=== PATIENT | male | born 1955 | race Caucasian/White ===

== ENCOUNTER 2019-03-27 17:15 | Inpatient (IN) | payer MEDICARE, SELFPAY ==
--- NOTE | 2019-03-27 17:31 | ED_ITS ---
Entered by Emily Dias, acting as scribe for HPI - Neuro Symptoms/Deficit General: Chief Complaint: Neuro Symptoms/Deficit Stated Complaint: stroke like symptoms Time Seen by Provider: 03/27/19 17:44 Source: family Limitations: altered mental status History of Present Illness: HPI Narrative: 64 male presents with stroke like symptoms started at 1530. pt has weakness on R face and R arm. pt's spouse stated he was in the barn and when he came back he had weakness to his face and could not talk like normal. spouse denies any other symptoms. Time: 15:30 Last Observed Normal: 15:30 Timing confirmed by: spouse Location: right face and right arm Severity: moderate Quality: weak (face) Relieving factors: none Exacerbating factors: none Context: sudden onset (1530) On Anticoagulants: No Associated symptoms: Reports weakness (face and R arm); Deny chest pain, headache(s) or vomiting Treatments Prior to Arrival: none Review of Systems Const: Denies: fever or chills Eyes: Denies: change in vision ENMT: Denies: throat pain or mouth pain Card: Denies: chest pain Resp: Denies: shortness of breath GI: Denies: abdominal pain, vomiting or diarrhea Musc: Denies: back pain or joint pain Skin/Breast: Denies: rash Neuro: Reports: confusion, slurred speech and difficulty communicating thoughts; Denies: headache Psych: Denies: depression Endo: Denies: excessive urination Gerardo/Lymph: Denies: easy bruising All/Imm: Denies: hives PFSH ED PFSH: Statuses (acute, chronic, etc) shown below reflect problem list status as previously entered and may not be historically accurate Medical History (Updated 03/27/19 @ 22:54 by Praveen Trimble MD) CHB (complete heart block) (Acute) HTN (hypertension) (Acute) T2DM (type 2 diabetes mellitus) (Acute) Surgical History (Updated 03/27/19 @ 22:54 by Praveen Trimble MD) Aortic valve replaced (Acute) S/P cardiac pacemaker procedure (Acute) Family History (Updated 03/27/19 @ 22:55 by Praveen Trimble MD) Other CAD (coronary artery disease) Family history of premature coronary artery disease Hypertension Stroke Social History (Updated 03/27/19 @ 22:56 by Praveen Trimble MD) Smoking and tobacco status: current every day smoker cigarettes Packs smoked per day: 0.5 Alcohol intake: former Household members: spouse Housing: House Marital status: Physical Exam Const: COMMON NORMALS: healthy appearing EXAM LIMITATIONS: altered mental status HENMT: COMMON NORMALS: normocephalic and external nose normal HEAD & SCALP: normocephalic NOSE: external nose normal and no nasal discharge (nasal dischage) OTHER: right sided facial droop Eye: COMMON NORMALS: PERRL PUPIL: Yes PERRL Neck/C-Spine: COMMON NORMALS: full ROM and no lymphadenopathy Chest: COMMONS NORMALS: inspection of chest normal Resp: COMMON NORMALS: normal respiratory effort and clear to auscultation bilaterally AUSCULTATION: clear to auscultation bilaterally Cardio: COMMON NORMALS: regular rate and regular rhythm RATE: regular rate RHYTHM: regular rhythm GI: COMMON NORMALS: soft to palpation PALPATION: Yes soft Extremity: COMMON NORMALS: normal to inspection, full ROM and normal capillary refill Neuro: OTHER: severe aphasia Psych: COMMON NORMALS: mental status grossly normal and cooperative Skin: COMMON NORMALS: no rashes or lesions noted GENERAL SKIN EXAM: no rashes or lesions noted Course Vital Signs: Vital signs: Vital Signs Temperature 97.7 F 03/28/19 14:51 Pulse Rate 63 03/28/19 14:51 Respiratory Rate 20 H 03/28/19 14:51 Blood Pressure 133/80 03/28/19 14:51 Pulse Oximetry 96 03/28/19 14:51 MDM - Neuro Symptoms/Deficit MDM Narrative: Medical decision making narrative: Patient presents here with a likely stroke. Patient was seen down the ER by Dr. Patton and patient is not a TPA candidate as CT shows findings of stroke already. Patient is not a retrieval candidate either. Will admit patient to CSU here. Lab Data: Labs: Lab Results 03/27/19 03/27/19 03/27/19 Range/Units 17:50 17:50 17:50 WBC 12.1 H (4.0-10.0) 10^3/ uL RBC 5.04 (4.1-5.3) 10^6/u L Hgb 15.5 (11.7-16.6) g/dL Hct 47.6 (42.0-52.0) % MCV 94.4 H (80-94) fL MCH 30.8 (28.0-34.0) pg MCHC 32.6 (30.0-36.0) g/dL RDW 14.0 (12.1-15.1) % Plt Count 189 (130-400) 10^3/c mm MPV 9.5 (7.4-10.4) fL Neut % (Auto) 68.6 % Lymph % (Auto) 21.0 % Sumner % (Auto) 6.6 % Eos % (Auto) 2.6 % Baso % (Auto) 0.7 % Neut # (Auto) 8.3 H (1.8-7.7) 10^3/u L Lymph # (Auto) 2.5 (0.8-4.8) 10^3/u L Sumner # (Auto) 0.8 (0.2-0.9) 10^3/u L Eos # (Auto) 0.3 (0.0-0.8) 10^3/u L Baso # (Auto) 0.1 (0.0-0.1) 10^3/u L Nucleated RBC % (a uto) 0 % Nucleated RBCs # 0.0 /100WBC PT 14.10 H (10.5-13.3) SECO NDS INR 1.06 (0.8-1.2) APTT 31.8 (23.9-36.7) SECO NDS Sodium 133 L (136-145) mmol/L Potassium 4.0 (3.5-5.1) mmol/L Chloride 100 (98-107) mmol/L Carbon Dioxide 21 L (22-29) mmol/L Anion Gap 16.0 (5-19) BUN 18 (8-23) mg/dL Creatinine 0.8 (0.7-1.2) mg/dL GFR Calculation 96.7 (90-130) mL/min Glucose 95 (74-106) mg/dL Calcium 9.7 (8.8-10.2) mg/Dl Total Bilirubin 0.5 (0.15-1.2) mg/dL AST 23 (0-40) U/L ALT 15 (0-41) U/L Alkaline Phosphata se 46 (40-130) IU/L Total Protein 7.0 (6.6-8.7) g/dL Albumin 4.1 (3.5-5.2) g/dL Globulin 2.9 (1.3-4.6) g/dL EKG Data^: EKG 1: Attestation: I personally reviewed and interpreted this EKG as follows: EKG interpretation date: 03/27/19 EKG interpretation time: 18:30 Interpretation: paced rhythm hr [address] or t wave abnormalities Discharge Plan Discharge Patient Disposition: Admitted As Inpatient Admit Provider: Praveen Trimble Clinical Impression: Cerebrovascular accident Condition: Stable Discharge Orders: Discharge Order (Routine); Ordered 03/28/19 Ordered By: Praveen Trimble Referrals: Alice Patton MD [Physician] - (You have an follow-up appoinment with Dr. Patton on June 03 at 11:30a.m. If, you have questions or need to reschedule. Please call: ) Frankie Schafer MD [Physician] - (You have an follow-up appointment with Sydnie Kang at [facility] on Tuesday at 9:15a.m. To discuss a Alex as an Outpatient . If, you any questions or need to reschedule. Please, [phone] ) Mahamed Nazario MD [Primary Care Provider] - (You have an follow-up appointment with on Tuesday at 11a.m. If, you have any questions or need to reschedule. Please call: . Speech tharpy at the [facility] will be contacting to schedule outpatinet speech tharpy in 2 weeks. If, you haven't heard from them by Tuesday. Please call: ) Patient Instructions: Aspirin/Codeine (By mouth), Amlodipine (By mouth), Atorvastatin (By mouth), Carvedilol (By mouth), Clopidogrel (By mouth), Varenicline (By mouth), Hypertension, Pacemaker (DC), Diabetes Mellitus Type 2 in Adults (DC), Self Care Measures After a Stroke (DC), Bradycardia (DC) Additional Instructions: Antihypertensives modified Coreg dose changed. Check BP daily as directed and educated. If BP over 150mmhg take amlo 5mg once a day as needed ALEX in 2 weeks Discharge Date/Time: 03/27/19 20:52 Coding Level of Care Code ED Supplier Diversity Director for [facility] The documentation recorded by the Arun gabriel Bridget Annette, accurately reflects the service I personally performed and the decisions made by me, Shaniqua Faye MD Mar 27, 2019 17:15
--- NOTE | 2019-03-27 17:35 | CTR_ITS ---
PROCEDURE INFORMATION: Exam: CT Head Without Contrast Exam date and time: 03/27/2019 5:43 PM Age: 64 years old Clinical indication: Speech disturbance; Additional info: Symptoms of acute stroke. Scanned twice due to patient motion TECHNIQUE: Imaging protocol: Computed tomography of the head without contrast. Total DLP: 1568.17 mGy-cm Radiation optimization: All CT scans at this facility use at least one of these dose optimization techniques: automated exposure control; mA and/or kV adjustment per patient size (includes targeted exams where dose is matched to clinical indication); or iterative reconstruction. Other technique: STROKE PROTOCOL was implemented. COMPARISON: CTA Head/Neck [id number] 03/13/2019 1:08 PM FINDINGS: Brain: Stable one or more chronic left lacunar basal ganglia infarcts. Interval appearance of 3.0 by 2.2 x 2.7 cm low-density nonhemorrhagic infarct in the left frontal lobe, just superior to the left sylvian fissure. Possible late subacute infarct/early chronic infarct. New since 03/13/2019. Ventricles: Normal. No ventriculomegaly. Bones/joints: Unremarkable. No acute fracture. Sinuses: Visualized sinuses are unremarkable. No fluid levels. Mastoid air cells: Visualized mastoid air cells are well aerated. Soft tissues: Unremarkable. Vasculature: Severe calcified intracranial atherosclerotic vessel disease. CT/CT head wo con* [id number] IMPRESSION: 1. Stable one or more chronic left lacunar basal ganglia infarcts. 2. Interval appearance of 3.0 by 2.2 x 2.7 cm low-density nonhemorrhagic infarct in the left frontal lobe, just superior to the left sylvian fissure. Possible late subacute infarct/early chronic infarct. New since 03/13/2019. ASSESSMENT: ASPECTS (Yvonne Stroke Program Early CT Score) is 9. Radiation Dose CTDIVOL = (mGy): DLP = 1568.17 (mGy-cm)
--- NOTE | 2019-03-27 17:35 | ECG_ITS ---
Measurements Intervals [place] Rate: 61 P: 62 PA: 177 QRS: -85 QRSD: 234 T: 95 QT: 553 QTc: 558 ELECTRONIC ATRIAL PACEMAKER ELECTRONIC VENTRICULAR PACEMAKER PROLONGED QT INTERVAL CRITICAL TEST RESULT Compared to ECG 02/24/2019 08:53:33 Prolonged QT interval now present Electronically Signed On 03-27-2019 19:22:29 TRIM CARPENTER by Frankie Schafer M.D. [id number]
[2019-03-27 18:02] LABS: Basophils # 0.1 10^3/uL (0.0-0.1); Basophils % 0.7 %; Eosinophils # 0.3 10^3/uL (0.0-0.8); Eosinophils % 2.6 %; Hematocrit 47.6 % (42.0-52.0); Hemoglobin 15.5 g/dL (11.7-16.6); Lymphocytes # 2.5 10^3/uL (0.8-4.8); Mean Corpuscular HGB Conc 32.6 g/dL (30.0-36.0); Mean Corpuscular Hemoglobin 30.8 pg (28.0-34.0); Mean Corpuscular Volume 94.4 fL (80-94); Mean Platelet Volume 9.5 fL (7.4-10.4); Monocytes # 0.8 10^3/uL (0.2-0.9); Monocytes % 6.6 %; Neutrophils # 8.3 10^3/uL (1.8-7.7); Neutrophils % 68.6 %; Nucleated Red Blood Cells % 0 %; Platelet Count 189 10^3/cmm (130-400); Red Blood Count 5.04 10^6/uL (4.1-5.3); White Blood Count 12.1 10^3/uL (4.0-10.0)
--- NOTE | 2019-03-27 18:02 | CTR_ITS ---
PROCEDURE INFORMATION: Exam: CT Angiography Head With Contrast Exam date and time: 03/27/2019 6:06 PM Age: 64 years old Clinical indication: Speech disturbance; Prior surgery; Surgery type: Pacemaker; Additional info: Stroke TECHNIQUE: Imaging protocol: Computed tomography angiography of the head with intravenous contrast. 3D rendering: MIP and/or 3D reconstructed images were created by the technologist. Total DLP: 3015.87 mGy-cm Radiation optimization: All CT scans at this facility use at least one of these dose optimization techniques: automated exposure control; mA and/or kV adjustment per patient size (includes targeted exams where dose is matched to clinical indication); or iterative reconstruction. Contrast material: VISI 320; Contrast volume: 95 ml; Contrast route: IV; COMPARISON: CTA Head/Neck [id number] 03/13/2019 1:08 PM FINDINGS: Right internal carotid artery: Calcified plaque in the right cavernous ICA without significant stenosis. Right anterior cerebral artery: Unremarkable. No occlusion or significant stenosis. No aneurysm. Right middle cerebral artery: Unremarkable. No occlusion or significant stenosis. No aneurysm. Right posterior cerebral artery: Unremarkable. No occlusion or significant stenosis. No aneurysm. Right vertebral artery: Dominant left vertebral artery with patent right vertebral artery. Left internal carotid artery: Calcified plaque in the left cavernous ICA without significant stenosis. Left anterior cerebral artery: Unremarkable. No occlusion or significant stenosis. No aneurysm. Left middle cerebral artery: Unremarkable. No occlusion or significant stenosis. No aneurysm. Left posterior cerebral artery: Direct origin of the left posterior cerebral artery from the anterior circulation. Left vertebral artery: Unremarkable. No occlusion or significant stenosis. No aneurysm. Basilar artery: Unremarkable. No occlusion or significant stenosis. No aneurysm. Other vasculature: Small patent anterior communicating artery. No large vessel occlusion. IMPRESSION: No large vessel occlusion. PROCEDURE INFORMATION: Exam: CT Angiography Neck With Contrast Exam date and time: 03/27/2019 6:06 PM Age: 64 years old Clinical indication: Speech disturbance; Prior surgery; Surgery type: Pacemaker; Additional info: Stroke TECHNIQUE: Imaging protocol: Computed tomography angiography of the neck with intravenous contrast. 3D rendering: MIP and/or 3D reconstructed images were created by the technologist. Total DLP: 3015.87 mGy-cm Radiation optimization: All CT scans at this facility use at least one of these dose optimization techniques: automated exposure control; mA and/or kV adjustment per patient size (includes targeted exams where dose is matched to clinical indication); or iterative reconstruction. Contrast material: VISI 320; Contrast volume: 95 ml; Contrast route: IV; COMPARISON: CTA Head/Neck [id number] 03/13/2019 1:08 PM FINDINGS: VASCULATURE: Right common carotid artery: Unremarkable. No stenosis. No dissection or occlusion. Right internal carotid artery: Right carotid bifurcation calcified plaque. No ICA stenosis by NASCET/SRU criteria. Right external carotid artery: Unremarkable. No occlusion or stenosis of the origin. Right vertebral artery: Dominant left vertebral artery with patent right vertebral artery. Left common carotid artery: Unremarkable. No stenosis. No dissection or occlusion. Left internal carotid artery: Left carotid bifurcation calcified plaque. Left external carotid artery: Unremarkable. No occlusion or stenosis of the origin. Left vertebral artery: Unremarkable. No stenosis. No dissection or occlusion. Other vasculature: Sternotomy wires and mediastinal clips consistent with previous CABG procedure. S-shaped tortuosity of bilateral cervical ICAs. NECK: Dental: Examination is limited secondary to metallic artifact from dental fillings and/or dental hardware. Poor dentition with one or more areas of cavities of the enamel portion of the tooth and/or periapical lucencies/tooth abscesses. Bones/joints: Ligamentum nuchae ossification/calcification. Moderate to severe multilevel spine degenerative changes including degenerative disc disease, spondylosis and facet degenerative changes. Soft tissues: Normal. No significant soft tissue swelling. Lungs: Mild centrilobular emphysema. Other findings: Levoscoliosis. CT/CT angio headneck* [id number] IMPRESSION: 1. Mild centrilobular emphysema. 2. Dominant left vertebral artery with patent right vertebral artery. 3. Poor dentition with one or more areas of cavities of the enamel portion of the tooth and/or periapical lucencies/tooth abscesses. 4. No ICA stenosis by NASCET/SRU criteria. COMMENT: Reference per NASCET criteria for degree of stenosis: Mild: less than 50% stenosis. Moderate: 50-69% stenosis. Severe: 70-94% stenosis. Near occlusion: 95-99% stenosis. Radiation Dose CTDIVOL = (mGy): DLP = 3015.87~3015.87 (mGy-cm)
--- NOTE | 2019-03-27 18:07 | PC.NURSE ---
See paper stroke packet for additional information. Patient back to CT for CTA at this time.
[2019-03-27 18:13] LABS: INR 1.06 (0.8-1.2)
[2019-03-27 18:14] LABS: Partial Thromboplastin Time 31.8 SECONDS (23.9-36.7)
[2019-03-27 18:19] LABS: Alanine Aminotransferase 15 U/L (0-41); Albumin Level 4.1 g/dL (3.5-5.2); Alkaline Phosphatase 46 IU/L (40-130); Blood Urea Nitrogen 18 mg/dL (8-23); Calcium 9.7 mg/Dl (8.8-10.2); Carbon Dioxide 21 mmol/L (22-29); Chloride 100 mmol/L (98-107); Globulin 2.9 g/dL (1.3-4.6); Glomerular Filtration Rate 96.7 mL/min (90-130); Glucose 95 mg/dL (74-106); Sodium 133 mmol/L (136-145); Total Bilirubin 0.5 mg/dL (0.15-1.2)
[2019-03-27] MEDS: iodixanol 320 mg/mL 100mL Btl 95 ML IV (18:20)
[2019-03-27] MEDS: sodium chloride 0.9% 1,000 ML 150 ML IV (18:24)
[2019-03-27 18:42] VITALS: BP 182/98; PULSE 62; RESP 14; TEMP 36.8; O2SAT 95; BMI 26.3
--- NOTE | 2019-03-27 18:56 | PM.SAN ---
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 The trouble some problem is that he developed acute expressive a aphasia on 28 February, 4 days after he was discharged from pacemaker placement. He was traveling with his that afternoon doing some shopping and she noticed on the way home that he would not answer her questions and was making gestures instead. Within 4 hours he was talking normally but since then, he has exhibited word searching or occasionally saying the wrong word. His energy level and wellbeing have gradually improved since pacemaker placement and although he was restricted in the use of his left arm, he was out working in the barn this afternoon. He went out at 3:00 and they had a conversation and he was doing well. He came back into the house at 4 PM and picked up his coffee cup with his right hand. He attempted to set the cup down on the counter and dropped it. At that point she discovered that he could not speak. They walked to the car and she brought him to the emergency department and stroke team was activated. I arrived as he was getting onto the CAT scan table and observed that he had difficulty bearing weight on the right leg which his said was a new problem. I helped get him onto the table and noticed that his right arm was clumsy and he had right facial weakness and expressive a aphasia but followed commands well. CT scan of the head showed what appeared to be a subacute infarct in the left frontal opercular branch of the left middle cerebral artery. CT angiogram did not show a visible clot. His CT scan of the head from 03/13/2019 (performed to evaluate him because of the episode of expressive a aphasia) did not show the infarct that is present on today's CAT scan. Because the patient's neuro deficit was moderate to severe and because of the clinical presentation with acute onset of severe symptoms at 4 PM (at worst 3 PM), I called the doctors access line and spoke with Dr. Tolentino at [facility], stroke neurology. I presented the case and he reviewed the imaging studies, which we had already pushed via [employer]. Stroke Alert Activated by: Triage Stroke Alert Activation Date: 03/27/19 Stroke MD @ Bedside Date: 03/27/19 Stroke MD @ Bedside Time: 17:30 NIH Stroke Scale Time: 17:50 NIH stroke score NIHSS: Level Of Consciousness - 1a: 0 Level Of Consciousness Questions - 1b: Both Correct Level Of Consciousness Commands - 1c: Both Correct Best Gaze - 2: Normal Visual Carrasco - 3: No Visual Loss Facial Palsy - 4: Partial Paralysis Motor Arm Right - 5: Effort Against [place] Motor Arm Left - 5: No Drift Motor Leg Right - 6: Effort Against [place] Motor Leg Left - 6: No Drift Limb Ataxia - 7: Absent Sensory - 8: Normal Best Language - 9: Severe Aphasia Dysarthia - 10: Mild/Moderate Dysarthia Extinction And Inattention - 11: 0 Score: Total Score: 9 Stroke Alert Data/Treatment Time to CT of Head: 17:45 CT Results Date: 03/27/19 CT Results Time: 17:50 CT Impression: New left frontal opercular edema consistent with subacute ischemic stroke. CT angiogram negative for thrombus. Stroke Risk Factors: smoker tPA Contraindication: tPA Contraindication: Treatment not indcated and Medical contraindication tPA Admin Prior to Arrival: No Patient & Family Educated on: Cause of Stroke, Risk Factors, Treament Plan, Prognosis and Stroke Education Booklet Standardized Stroke Orders Used: Yes Other Information: Plan transesophageal echo. I talked with Dr. Tolentino at [facility] because of the complexity of this case and he separately interviewed the patient and his and agreed that there was no role for TPA in this patient's care because of the danger of intracranial hemorrhage posed by what appears to be a subacute stroke in the left frontal opercular region despite the clinical acuity. I carefully reviewed this information multiple times with the patient's . I explained that there is no role for ICU. We will administer IV fluids. Discussed with Dr. Faye. Patient will require hospitalization to look for the cause of the stroke which I strongly suspect is cardiac in origin. I explained to the patient that he needs to stop smoking today. I would recommend that he initiate Chantix during hospitalization or immediately after discharge. Critical Care Time Critical Care Time: 30 - 74 mins Coding Level of Care Code Acute Sediment Remediation Consultant for Glenna James
[2019-03-27 19:07] LABS: Aspartate Amino Transferase 23 U/L (0-40)
[2019-03-27] MEDS: aspirin 300 mg Supp PR (20:08)
--- NOTE | 2019-03-27 20:10 | P.HP_ITS ---
Providers/Chief Complaint Primary Care Provider: Mahamed Nazario MD Chief Complaint: stroke like symptoms History of Present Illness Julius Rao is a 64 year old male with PMH of HTN, chronic smoker, AVR 6 yrs ago, recent PPI for CHB presented to ER with his with c/o expressive aphasia, right sided weakness, right sided facial droop since today evening at 4 Pm which was first noticed by his when he dropped cup and was not able to grasp it up from floor. As per his patient has had episodes of expressive aphasia atleast 4 times since PPI mostly lasting for 10-15 mins. NOne of he events today or prior were a/w N/V, dizziness, headache, seizure like activity, aura. In ER CT head and CTA was done and stroke code was called. After discussion with Dr. Patton and neurologist at [facility] it was deemed that patient is a not a good candidate for tPA and retrieval given the high risk of hemorrhage and distal occlusion. During my evaluation pwer on right side had improved and slurring of speech had improved as well along with very mild residual aphasia. Review of Systems Const: Denies: fever, chills, body aches, change in appetite, malaise, night sweats, diaphoresis, change in sleep pattern, daytime sleepiness or snoring Eyes: Denies: change in vision, blurry vision, photophobia, eye discomfort or eye discharge ENMT: Denies: throat pain, enlarged tonsils, hoarseness, mouth pain, oral sores/lesions, dry mouth, tinnitus, nasal congestion or post nasal drip Card: Denies: chest pain, palpitations, irregular heart rhythm, edema, swelling of feet/ankles, lightheadedness, syncope, pre-syncope, shortness of breath on exertion, shortness of breath when lying down, leg pain with exertion or bluish discoloration of hands/feet Resp: Denies: shortness of breath, productive cough, non-productive cough, wheezing, stridor, pain on inspiration, change in phlegm color, coughing up blood or chest congestion GI: Denies: abdominal pain, nausea, vomiting, vomiting blood, coffee grounds in vomit, difficulty swallowing, heartburn/indigestion, diarrhea, constipation, bloating, cramping, change in bowel habits, painful bowel movements, blood in stool or black tarry stool : Denies: flank pain, difficulty urinating, painful urination, urinary frequency, urinary urgency, urinary hesitancy, urinary dribbling, difficulty starting urination, change in urine stream, nighttime urination or blood in urine Musc: Denies: neck pain, back pain, extremity pain, joint pain, joint swelling, redness, joint stiffness or limited range of motion Neuro: Reports: numbness in extremities, weakness in extremities, changes in sensation, lack of coordination, difficulty walking, slurred speech and difficulty communicating thoughts; Denies: headache, frequent falls, dizziness, vertigo, confusion or seizure-like activity Psych: Denies: anxiety, depression, mood swings, panic attacks, hopelessness or irritability Endo: Denies: excessive urination, excessive thirst, tired all the time, cold intolerance, excessive sweating, flushing or heat intolerance Gerardo/Lymph: Denies: easy bruising or easy bleeding All/Imm: Denies: tongue swelling, facial swelling or acute wheezing Medications/Allergies Home Medications Medication Instructions Recorded Confirmed Last Taken Type amlodipine 10 mg PO DAILY 03/27/19 03/27/19 03/27/19 History atorvastatin 10 mg PO QPM 03/27/19 03/27/19 03/26/19 History carvedilol 12.5 mg PO BID 03/27/19 03/27/19 03/27/19 History clonidine HCl 0.1 mg PO DAILY PRN 03/27/19 03/27/19 03/27/19 History metformin 500 mg PO QPM 03/27/19 03/27/19 03/26/19 History multivitamin 1 tab PO DAILY 03/27/19 03/27/19 03/27/19 History omega 8-[id number]-vuh-fish oil [Fish Oil] 1 cap PO DAILY 03/27/19 03/27/19 03/27/19 History tamsulosin [Flomax] 0.4 mg PO BEDTIME 03/27/19 03/27/19 03/26/19 History valsartan 160 mg PO DAILY 03/27/19 03/27/19 03/27/19 History Allergies Allergy/AdvReac Type Severity Reaction Status Date / Time No Known Allergies Allergy Verified 03/27/19 18:48 PFSH Acute PFSH: Statuses (acute, chronic, etc) shown below reflect problem list status as previously entered and may not be historically accurate Medical History (Updated 03/27/19 @ 22:54 by Praveen Trimble MD) CHB (complete heart block) (Acute) HTN (hypertension) (Acute) T2DM (type 2 diabetes mellitus) (Acute) Surgical History (Updated 03/27/19 @ 22:54 by Praveen Trimble MD) Aortic valve replaced (Acute) S/P cardiac pacemaker procedure (Acute) Family History (Updated 03/27/19 @ 22:55 by Praveen Trimble MD) Other CAD (coronary artery disease) Family history of premature coronary artery disease Hypertension Stroke Social History (Updated 03/27/19 @ 22:56 by Praveen Trimble MD) Smoking and tobacco status: current every day smoker cigarettes Packs smoked per day: 0.5 Alcohol intake: former Substance/Drug Use: never Household members: spouse Housing: House Marital status: Vitals/I&O/Wt Last Vital Signs Temp 98.2 F 03/27/19 18:42 Pulse 62 03/27/19 18:42 Resp 14 03/27/19 18:42 BP 182/98 03/27/19 18:42 Pulse Ox 95 03/27/19 18:42 03/27/19 03/27/19 03/27/19 06:59 14:59 22:59 Intake Total 5.833 / 5.833 Balance 5.833 / 5.833 Weight last 48 hrs Weight 85.729 kg Physical Exam Narrative: EXAM NARRATIVE: General: No acute distress, AO x3 HEENT: PERRLA, pupils bilaterally equal and reactive Chest: Normal vesicular breath sounds, no added sounds, equal good air entry bilaterally CVS: S1-S2 regular, no murmurs, no tachycardia, no gallops, no rubs Abdomen: Soft, nontender, no organomegaly, bowel sounds present Neuro: GEORGIE COMA SCALE: document GCS findings [place] coma scale eye opening: Spontaneous Georgie coma scale verbal response: Orientated Georgie coma scale motor response: Obey commands Georgie coma scale total score: 15 COMMON NORMALS: oriented x3 MENINGEAL SIGNS: Yes no meningeal signs CRANIAL NERVES: Yes pupillary reactivity/size COORDINATION/BALANCE: finge r-to-nose test normal SPEECH: speech normal and expressive aphasia MOTOR EXAM: no pronator drift, no tremor noted and strength abnormal (right upper and lower limb 3/5) Data Imaging^: CT Head: Radiologist's impression: CT Scan Report Signed with Addenda Patient: James Rao#: [id number] : 1955cct:[id number] Age/Sex: 64 / MADM Date: 03/27/19 Loc: ER Attending Dr: Ordering Physician: Shaniqua Faye MD Date of Service: 03/27/19 Procedure(s): CT head wo con* [id number] Accession Number(s): [id number] cc: Shaniqua Faye MD~ ADDENDUM CT/CT head wo con* [id number] THIS REPORT CONTAINS FINDINGS THAT MAY BE CRITICAL TO PATIENT CARE. The findings were verbally communicated via telephone conference with Aron Dorman at 6:27 PM SURVEY TECHNICIAN on 03/27/2019. The findings were acknowledged and understood. Radiation Dose CTDIVOL = (mGy): DLP = 1568.17 (mGy-cm) Addendum Dictated By: Apollo Toney MD 03/27/19 182 Addendum Signed By: Apollo Toney MD 03/27/19 1829 PROCEDURE INFORMATION: Exam: CT Head Without Contrast Exam date and time: 03/27/2019 5:43 PM Age: 64 years old Clinical indication: Speech disturbance; Additional info: Symptoms of acute stroke. Scanned twice due to patient motion TECHNIQUE: Imaging protocol: Computed tomography of the head without contrast. Total DLP: 1568.17 mGy-cm Radiation optimization: All CT scans at this facility use at least one of these dose optimization techniques: automated exposure control; mA and/or kV adjustment per patient size (includes targeted exams where dose is matched to clinical indication); or iterative reconstruction. Other technique: STROKE PROTOCOL was implemented. COMPARISON: CTA Head/Neck [id number] 03/13/2019 1:08 PM FINDINGS: Brain: Stable one or more chronic left lacunar basal ganglia infarcts. Interval appearance of 3.0 by 2.2 x 2.7 cm low-density nonhemorrhagic infarct in the left frontal lobe, just superior to the left sylvian fissure. Possible late subacute infarct/early chronic infarct. New since 03/13/2019. Ventricles: Normal. No ventriculomegaly. Bones/joints: Unremarkable. No acute fracture. Sinuses: Visualized sinuses are unremarkable. No fluid levels. Mastoid air cells: Visualized mastoid air cells are well aerated. Soft tissues: Unremarkable. Vasculature: Severe calcified intracranial atherosclerotic vessel disease. CT/CT head wo con* [id number] IMPRESSION: 1. Stable one or more chronic left lacunar basal ganglia infarcts. 2. Interval appearance of 3.0 by 2.2 x 2.7 cm low-density nonhemorrhagic infarct in the left frontal lobe, just superior to the left sylvian fissure. Possible late subacute infarct/early chronic infarct. New since 03/13/2019. ASSESSMENT: ASPECTS ([place] Stroke Program Early CT Score) is 9. Radiation Dose CTDIVOL = (mGy): DLP = 1568.17 (mGy-cm) Other CT: Radiologist's impression: [place] [address] CT Scan Report Signed Patient: Jmaes Rao#: [id number] : 1955cct:[id number] Age/Sex: 64 / MADM Date: 03/27/19 Loc: ER Attending Dr: Ordering Physician: Shaniqua Faye MD Date of Service: 03/27/19 Procedure(s): CT angio headneck* [id number] Accession Number(s): [id number] cc: Shaniqua Faye MD~ PROCEDURE INFORMATION: Exam: CT Angiography Head With Contrast Exam date and time: 03/27/2019 6:06 PM Age: 64 years old Clinical indication: Speech disturbance; Prior surgery; Surgery type: Pacemaker; Additional info: Stroke TECHNIQUE: Imaging protocol: Computed tomography angiography of the head with intravenous contrast. 3D rendering: MIP and/or 3D reconstructed images were created by the technologist. Total DLP: 3015.87 mGy-cm Radiation optimization: All CT scans at this facility use at least one of these dose optimization techniques: automated exposure control; mA and/or kV adjustment per patient size (includes targeted exams where dose is matched to clinical indication); or iterative reconstruction. Contrast material: VISI 320; Contrast volume: 95 ml; Contrast route: IV; COMPARISON: CTA Head/Neck [id number] 03/13/2019 1:08 PM FINDINGS: Right internal carotid artery: Calcified plaque in the right cavernous ICA without significant stenosis. Right anterior cerebral artery: Unremarkable. No occlusion or significant stenosis. No aneurysm. Right middle cerebral artery: Unremarkable. No occlusion or significant stenosis. No aneurysm. Right posterior cerebral artery: Unremarkable. No occlusion or significant stenosis. No aneurysm. Right vertebral artery: Dominant left vertebral artery with patent right vertebral artery. Left internal carotid artery: Calcified plaque in the left cavernous ICA without significant stenosis. Left anterior cerebral artery: Unremarkable. No occlusion or significant stenosis. No aneurysm. Left middle cerebral artery: Unremarkable. No occlusion or significant stenosis. No aneurysm. Left posterior cerebral artery: Direct origin of the left posterior cerebral artery from the anterior circulation. Left vertebral artery: Unremarkable. No occlusion or significant stenosis. No aneurysm. Basilar artery: Unremarkable. No occlusion or significant stenosis. No aneurysm. Other vasculature: Small patent anterior communicating artery. No large vessel occlusion. IMPRESSION: No large vessel occlusion. PROCEDURE INFORMATION: Exam: CT Angiography Neck With Contrast Exam date and time: 03/27/2019 6:06 PM Age: 64 years old Clinical indication: Speech disturbance; Prior surgery; Surgery type: Pacemaker; Additional info: Stroke TECHNIQUE: Imaging protocol: Computed tomography angiography of the neck with intravenous contrast. 3D rendering: MIP and/or 3D reconstructed images were created by the technologist. Total DLP: 3015.87 mGy-cm Radiation optimization: All CT scans at this facility use at least one of these dose optimization techniques: automated exposure control; mA and/or kV adjustment per patient size (includes targeted exams where dose is matched to clinical indication); or iterative reconstruction. Contrast material: VISI 320; Contrast volume: 95 ml; Contrast route: IV; COMPARISON: CTA Head/Neck [id number] 03/13/2019 1:08 PM FINDINGS: VASCULATURE: Right common carotid artery: Unremarkable. No stenosis. No dissection or occlusion. Right internal carotid artery: Right carotid bifurcation calcified plaque. No ICA stenosis by NASCET/SRU criteria. Right external carotid artery: Unremarkable. No occlusion or stenosis of the origin. Right vertebral artery: Dominant left vertebral artery with patent right vertebral artery. Left common carotid artery: Unremarkable. No stenosis. No dissection or occlusion. Left internal carotid artery: Left carotid bifurcation calcified plaque. Left external carotid artery: Unremarkable. No occlusion or stenosis of the origin. Left vertebral artery: Unremarkable. No stenosis. No dissection or occlusion. Other vasculature: Sternotomy wires and mediastinal clips consistent with previous CABG procedure. S-shaped tortuosity of bilateral cervical ICAs. NECK: Dental: Examination is limited secondary to metallic artifact from dental fillings and/or dental hardware. Poor dentition with one or more areas of cavities of the enamel portion of the tooth and/or periapical lucencies/tooth abscesses. Bones/joints: Ligamentum nuchae ossification/calcification. Moderate to severe multilevel spine degenerative changes including degenerative disc disease, spondylosis and facet degenerative changes. Soft tissues: Normal. No significant soft tissue swelling. Lungs: Mild centrilobular emphysema. Other findings: Levoscoliosis. CT/CT angio headneck* [id number] IMPRESSION: 1. Mild centrilobular emphysema. 2. Dominant left vertebral artery with patent right vertebral artery. 3. Poor dentition with one or more areas of cavities of the enamel portion of the tooth and/or periapical lucencies/tooth abscesses. 4. No ICA stenosis by NASCET/SRU criteria. COMMENT: Reference per NASCET criteria for degree of stenosis: Mild: less than 50% stenosis. Moderate: 50-69% stenosis. Severe: 70-94% stenosis. Near occlusion: 95-99% stenosis. Radiation Dose CTDIVOL = (mGy): DLP = 3015.87~3015.87 (mGy-cm) Dictated By: Apollo Toney MD 03/27/191835 Signed By: Apollo Toney MD 03/27/191837 EKG^: EKG 1: I personally reviewed and interpreted this EKG as follows: My Interpretation: Paced rhythm: continuos, 62 bpm A&P Assessment and plan (1) Cerebrovascular accident: Status: Acute Code(s): I63.9 - Cerebral infarction, unspecified (2) HTN (hypertension): Status: Acute Code(s): I10 - Essential (primary) hypertension Additional A&P Information Additional A&P Information: Acute Stroke: Deemed not a good candidate for tPA or surgical intervention CThead and CTA done Check ECHO, lipid panel, A1c Admit with telemetry Permissible HTN upto systolic 220/110mmhg. ST adelita, PT/OT NPO for now. director of home health services consult for Dc planning. C/w ASA 300 mg NH till swallow resolved. Lipitor 80 mg PO QD from tomorrow. NVsc check Q1hr Dr. Patton's recs appreciated. HTN: Hold Antihypertensive. BP 220/110 acceptable. Keep above SBP-140mmhg T2DM: Check A1c ISS at mild protocol Q6h till NPO s/p PCI: Pacer dependent for now. FC NPO lovenox for DVT ppx Attestations Medical Necessity Statement*: more than 2 mod nights for acute stroke. Coding Level of Care Code Acute Umbrella Tipper Hand for Chg Fwd Diagnoses Cerebrovascular accident I63.9 HTN (hypertension) I10
[2019-03-27 20:45] VITALS: BP 155/91; PULSE 64; RESP 14; O2SAT 95
[2019-03-27 22:37] LABS: Thyroid Stimulating Hormone 1.41 uIU/mL (0.27-4.20)
--- NOTE | 2019-03-27 23:12 | PC.NURSE ---
2114: Admitted to room 111-2 from ED via stretcher with complaint of stroke. Patient able to sit on side of bed. Immobilizer in place from previous PPM surgery. Incision without redness or drainage. Right pupil sluggish. Speech slurred. Hard for patient to find words to say. Right planogrammer slightly weaker than left along with right lower extremity slightly weaker than left. Denies pain at this time. Will monitor.
--- NOTE | 2019-03-27 23:18 | PC.NURSE ---
2114 LE: Patient with mild right sided facial drooping;however, at the end of the admission assessment, patient was able to smile with no right sided facial drooping noted. Will monitor.
[2019-03-27 23:50] VITALS: BP 165/74; PULSE 64; RESP 18; TEMP 36.8; O2SAT 95
[2019-03-27] MEDS: tamsulosin 0.4 mg Capsule PO (23:57)
[2019-03-27] MEDS: enoxaparin 40 mg/0.4 mL Syringe SUBCUT (23:57)
[2019-03-27] MEDS: atorvastatin 40 mg Tablet 80 MG PO (23:58)
[2019-03-28] VITALS (7 sets, daily range): BP systolic 133–152; BP diastolic 73–80; PULSE 61–72; RESP 18–20; TEMP 36.5–36.9; O2SAT 94–96
[2019-03-28 00:06] LABS: Glucose Point of Care 86 mg/dL (70-110)
[2019-03-28] MEDS: sodium chloride 0.9% 1,000 ML 150 ML IV ×2 (00:17→06:38)
[2019-03-28 00:42] LABS: Add Urine Microscopic? YES; Bilirubin Urine Neg (NEGATIVE); Blood Urine 2+ (Negative); Glucose Urine UA Norm (Normal); Ketones Urine Negative (Negative); Leukocyte Esterase Urine Negative (Negative); Nitrate Urine Negative (Negative); Protein Urine Neg (Negative); Urine Appearance Hazy (CLEAR); Urine Color Yellow (Yellow); Urobilinogen Urine Norm (Negative); pH Urine 6 (5-7)
[2019-03-28 00:44] LABS: Add Urine Culture? No
[2019-03-28 00:47] LABS: Amphetamines Screen Urine Negative (Negative); Barbiturates Screen Urine Negative (Negative); Benzodiazepines Screen Urine Negative (Negative); Cocaine Screen Urine Negative (Negative); Opiate Screen Urine Negative (Negative); PCP Screen Urine Negative (Negative); THC Screen Urine Negative (Negative)
--- NOTE | 2019-03-28 02:41 | PC.NURSE ---
Patient accidentally pulled IV out with catheter intact. Bandage applied. IV restarted with 20 gauge angio cath x1 attempt using aseptic technique in right hand. Secured with mica guard and coban. Tolerated well. Will monitor.
[2019-03-28 03:50] LABS: Glucose Point of Care 97 mg/dL (70-110)
[2019-03-28 05:19] LABS: Basophils % 0.5 %; Eosinophils # 0.2 10^3/uL (0.0-0.8); Eosinophils % 2.1 %; Hemoglobin 14.2 g/dL (11.7-16.6); Lymphocytes # 2.2 10^3/uL (0.8-4.8); Lymphocytes % 27.9 %; Mean Corpuscular Hemoglobin 29.6 pg (28.0-34.0); Mean Corpuscular Volume 89.8 fL (80-94); Mean Platelet Volume 9.8 fL (7.4-10.4); Monocytes # 0.6 10^3/uL (0.2-0.9); Monocytes % 7.4 %; Neutrophils # 4.8 10^3/uL (1.8-7.7); Neutrophils % 61.6 %; Nucleated Red Blood Cells % 0 %; Platelet Count 186 10^3/cmm (130-400); Red Blood Count 4.79 10^6/uL (4.1-5.3); Red Cell Distribution Width 13.8 % (12.1-15.1); White Blood Count 7.7 10^3/uL (4.0-10.0)
[2019-03-28 05:41] LABS: Alanine Aminotransferase 13 U/L (0-41); Albumin Level 3.8 g/dL (3.5-5.2); Alkaline Phosphatase 43 IU/L (40-130); Anion Gap 13.8 (5-19); Aspartate Amino Transferase 19 U/L (0-40); Blood Urea Nitrogen 13 mg/dL (8-23); Calcium 9.5 mg/Dl (8.8-10.2); Carbon Dioxide 23 mmol/L (22-29); Chloride 107 mmol/L (98-107); Chol HDL Ratio 4.06 mg/dL (1.0-5.00); Cholesterol 142 mg/dL (0-200); Globulin 2.4 g/dL (1.3-4.6); Glomerular Filtration Rate 112.8 mL/min (90-130); Glucose 106 mg/dL (74-106); HDL Cholesterol 35 mg/dL (60-100); LDL Cholesterol Calculated 89 mg/dL (50-129); Magnesium 2.2 mg/dL (1.7-2.3); Phosphorus 2.3 mg/dL (2.5-4.5); Potassium 3.8 mmol/L (3.5-5.1); Sodium 140 mmol/L (136-145); Total Bilirubin 0.7 mg/dL (0.15-1.2); Total Protein 6.2 g/dL (6.6-8.7); Triglycerides 90 mg/dL (0-150)
[2019-03-28 05:48] LABS: Estmated Average Glucose 131; Hemoglobin A1C 6.2 % (4.0-6.0)
[2019-03-28 06:48] LABS: LDL Cholesterol 88 (0-100)
[2019-03-28 07:38] LABS: Glucose Point of Care 103 mg/dL (70-110)
--- NOTE | 2019-03-28 08:00 | ECG_ITS ---
Measurements Intervals [place] Rate: 62 P: 245 PA: 184 QRS: -85 QRSD: 224 T: 102 QT: 535 QTc: 546 ELECTRONIC ATRIAL PACEMAKER ELECTRONIC VENTRICULAR PACEMAKER ABNORMAL RHYTHM ECG Compared to ECG 03/27/2019 18:30:13 Prolonged QT interval no longer present Electronically Signed On 03-28-2019 15:40:22 [employer] by Isaias Bateman M.D. [email or web address]
[2019-03-28] MEDS: atorvastatin 40 mg Tablet 80 MG PO (08:58)
[2019-03-28 11:58] LABS: Glucose Point of Care 140 mg/dL (70-110)
--- NOTE | 2019-03-28 12:10 | PC.CHAP ---
Pastoral Care Encounter/Spiritual Assessment Type of Contact [] Declined head refrigerating engineer visit [] Patient/Family/Request visit [] Outpatient visit [] Follow-up visit [] Physician referral [] Code/Alert [x] Routine visit [] Staff referral [] Actively dying [] Patient sleeping [] Family support [] [] Out of room [] Palliative care [] [] Receiving care in room [] Pre-surgical visit [] Trauma [] Long length of stay [] ICU visit [] Other: Relational/Emotional Strength [] Patient feels connected with others/family/visitors/staff [] Distress [] Loneliness/isolation [] Abandonment Spirituality of Patient [] Person of Soni [] Attends Congregational of their [place]in [x] Believes in Prayer [] Reads Bible or Rastafarian materials [] There are Spiritual issues to be addressed Residential Program Director Interventions [x] Prayer [x] Active listening [x] Non-anxious presence [x] Spiritual/emotional support [] Crisis/trauma care [] Spiritual counseling [] Bereavement support [] Provided bereavement packet [] Provided Bible/devotional materials [] Provided toy/stuffed animal, coloring book to patient or family member [x] Completed spiritual assessment [] Provided Communion [] Anointing/[place] [] Salvation [] Other: Impact on Illness or Injury [] Angry [] Fearful [] Anxious [] Often cries [] Exhaustion [] Unable to work [] Unable to attend mormonism [] Unable to walk/stand [] Unable to read [] Unable to drive [] Unable to eat/drink [] Unable to sleep [] Unable to be with family [] Other: Summary visits Time spent with patient
--- NOTE | 2019-03-28 12:49 | P.DS_ITS ---
Discharge Providers Date of Admission: 03/27/19 20:37 Date of Discharge: 03/28/19 Attending Provider at Admission: Praveen Trimble MD Attending Provider at Discharge: Praveen Trimble MD Primary Care Provider: Mahamed Nazario MD Diagnoses at Discharge Discharge Diagnosis (1) Cerebrovascular accident: Status: Acute (2) HTN (hypertension): Status: Acute Reason for Visit Reason for Visit: Reason For Visit: stroke like symptoms Hospital Course Discharge Summary: Julius Rao is a 64 year old male with PMH of HTN, chronic smoker, AVR 6 yrs ago, recent PPI for CHB presented to ER with his with c/o expressive aphasia, right sided weakness, right sided facial droop since today evening at 4 Pm which was first noticed by his when he dropped cup and was not able to grasp it up from floor. As per his patient has had episodes of expressive aphasia atleast 4 times since PPI mostly lasting for 10-15 mins. NOne of he events today or prior were a/w N/V, dizziness, headache, seizure like activity, aura. In ER CT head and CTA was done and stroke code was called. After discussion with Dr. Patton and neurologist at [facility] it was deemed that patient is a not a good candidate for tPA and retrieval given the high risk of hemorrhage and distal occlusion. Patient is admitted under observation and continue to improve neuro vascularly. He was seen by physical therapist and was back to his baseline physical capabi lities by morning. He was also seen by speech therapist who had recommended him on regular diet as per their evaluation and speech therapy as an outpatient. During his old stay he was not on any antihypertensives and his blood pressures remained within normal range after 2 the fact that patient at home was on 3 high-dose antihypertensives along with clonidine as needed. Patient was advised to start on low-dose Coreg at home and check his blood pressures daily. Patient was educated on how to check his blood pressure at home and to add amlodipine 5 mg daily if his blood pressures go over 150/90 mmHg. Patient was started on aspirin and Plavix and risk factors versus need of the medication was discussed with the patient. Patient has been advised to follow-up with Dr. Patton in [address] Schafer within next 2 weeks for a ALEX. Patient was educated and counseled regarding need of immediate smoking cessation to which patient agreed and wanted help pharmacologically. Different pharm acological and life style changes were discussed and patient was advised about various possible side effects and he agreed to take Chantix as prescribed. Patient was advised to take Chantix for first week with food in morning followed by without food in morning and afternoon from second week but never to take at night as it could cause him to have nightmares. Patient verbalized understanding. Physical Exam Narrative: EXAM NARRATIVE: General: No acute distress, AO x3 HEENT: PERRLA, pupils bilaterally equal and reactive Chest: Normal vesicular breath sounds, no added sounds, equal good air entry bilaterally CVS: S1-S2 regular, no murmurs, no tachycardia, no gallops, no rubs Abdomen: Soft, nontender, no organomegaly, bowel sounds present Neuro: Residual right facial droop, no slurred speech power right UL/LL-4/5 MARY ANNE/LLL-5/5 Discharge Data Data Completed and Pending: Completed Studies During Hospitalization Category Date Time Status CT head wo con* [id number] 0450 Stat Cat Scan 03/27/19 17:35 Completed CTA head neck [CT angio headneck* [id number]] Urgent Cat Scan 03/27/19 18:02 Completed Pending at discharge Category Date Time Status CV echo complete* [id number] Routine Ultrasound 03/28/19 21:32 Taken Labs from last 24 hours 03/28/19 03/28/19 03/28/19 11:53 07:27 04:30 WBC RBC Hgb Hct MCV MCH MCHC RDW Plt Count MPV Neut % (Auto) Lymph % (Auto) [place] % (Auto) Eos % (Auto) Baso % (Auto) Neut # (Auto) Lymph # (Auto) [place] # (Auto) Eos # (Auto) Baso # (Auto) Nucleated RBC % (a uto) Nucleated RBCs # PT INR APTT Sodium Potassium Chloride Carbon Dioxide Anion Gap BUN Creatinine GFR Calculation Glucose POC Glucose 140 103 Estimat Average Gl ucose 131 Hemoglobin A1c 6.2 H Calcium Phosphorus Magnesium Total Bilirubin AST ALT Alkaline Phosphata se Total Protein Albumin Globulin Triglycerides Cholesterol LDL Cholesterol LDL Cholesterol, C alc Total VLDL Cholest todd HDL Cholesterol LDL/HDL Ratio Cholesterol/HDL Ra shari TSH Urine Color Urine Appearance Urine pH Ur Specific Gravit y Urine Protein Urine Glucose (UA) Urine Ketones Urine Occult Blood Urine Nitrate Urine Bilirubin Urine Urobilinogen Ur Leukocyte Dawn ase Urine RBC Urine WBC Ur Squamous Epith Cells Urine Bacteria Urine Opiates Scre en Ur Barbiturates Sc reen Ur Phencyclidine S crn Ur Amphetamines Sc reen U Benzodiazepines Scrn Urine Cocaine Scre en U Marijuana (THC) Screen 03/28/19 03/28/19 03/28/19 04:30 04:30 03:47 WBC 7.7 RBC 4.79 Hgb 14.2 Hct 43.0 MCV 89.8 MCH 29.6 MCHC 33.0 RDW 13.8 Plt Count 186 MPV 9.8 Neut % (Auto) 61.6 Lymph % (Auto) 27.9 [place] % (Auto) 7.4 Eos % (Auto) 2.1 Baso % (Auto) 0.5 Neut # (Auto) 4.8 Lymph # (Auto) 2.2 [place] # (Auto) 0.6 Eos # (Auto) 0.2 Baso # (Auto) 0.0 Nucleated RBC % (a uto) 0 Nucleated RBCs # 0.0 PT INR APTT Sodium 140 Potassium 3.8 Chloride 107 Carbon Dioxide 23 Anion Gap 13.8 BUN 13 Creatinine 0.7 GFR Calculation 112.8 Glucose 106 POC Glucose 97 Estimat Average Gl ucose Hemoglobin A1c Calcium 9.5 Phosphorus 2.3 L Magnesium 2.2 Total Bilirubin 0.7 AST 19 ALT 13 Alkaline Phosphata se 43 Total Protein 6.2 L Albumin 3.8 Globulin 2.4 Triglycerides 90 Cholesterol 142 LDL Cholesterol 88 LDL Cholesterol, C alc 89 Total VLDL Cholest todd Cancelled HDL Cholesterol 35 L LDL/HDL Ratio 2.50 Cholesterol/HDL Ra shari 4.06 TSH Urine Color Urine Appearance Urine pH Ur Specific Gravit y Urine Protein Urine Glucose (UA) Urine Ketones Urine Occult Blood Urine Nitrate Urine Bilirubin Urine Urobilinogen Ur Leukocyte Dawn ase Urine RBC Urine WBC Ur Squamous Epith Cells Urine Bacteria Urine Opiates Scre en Ur Barbiturates Sc reen Ur Phencyclidine S crn Ur Amphetamines Sc reen U Benzodiazepines Scrn Urine Cocaine Scre en U Marijuana (THC) Screen 03/28/19 03/28/19 03/27/19 00:09 00:09 23:48 WBC RBC Hgb Hct MCV MCH MCHC RDW Plt Count MPV Neut % (Auto) Lymph % (Auto) [place] % (Auto) Eos % (Auto) Baso % (Auto) Neut # (Auto) Lymph # (Auto) [place] # (Auto) Eos # (Auto) Baso # (Auto) Nucleated RBC % (a uto) Nucleated RBCs # PT INR APTT Sodium Potassium Chloride Carbon Dioxide Anion Gap BUN Creatinine GFR Calculation Glucose POC Glucose 86 Estimat Average Gl ucose Hemoglobin A1c Calcium Phosphorus Magnesium Total Bilirubin AST ALT Alkaline Phosphata se Total Protein Albumin Globulin Triglycerides Cholesterol LDL Cholesterol LDL Cholesterol, C alc Total VLDL Cholest todd HDL Cholesterol LDL/HDL Ratio Cholesterol/HDL Ra shari TSH Urine Color Yellow Urine Appearance Hazy A Urine pH 6 Ur Specific Gravit y 1.010 Urine Protein Neg Urine Glucose (UA) Norm Urine Ketones Negative Urine Occult Blood 2+ H Urine Nitrate Negative Urine Bilirubin Neg Urine Urobilinogen Norm Ur Leukocyte Dawn ase Negative Urine RBC 5-10 H Urine WBC None Ur Squamous Epith Cells None Urine Bacteria None Urine Opiates Scre en Negative Ur Barbiturates Sc reen Negative Ur Phencyclidine S crn Negative Ur Amphetamines Sc reen Negative U Benzodiazepines Scrn Negative Urine Cocaine Scre en Negative U Marijuana (THC) Screen Negative 03/27/19 03/27/19 03/27/19 21:50 17:50 17:50 WBC RBC Hgb Hct MCV MCH MCHC RDW Plt Count MPV Neut % (Auto) Lymph % (Auto) [place] % (Auto) Eos % (Auto) Baso % (Auto) Neut # (Auto) Lymph # (Auto) [place] # (Auto) Eos # (Auto) Baso # (Auto) Nucleated RBC % (a uto) Nucleated RBCs # PT 14.10 H INR 1.06 APTT 31.8 Sodium 133 L Potassium 4.0 Chloride 100 Carbon Dioxide 21 L Anion Gap 16.0 BUN 18 Creatinine 0.8 GFR Calculation 96.7 Glucose 95 POC Glucose Estimat Average Gl ucose Hemoglobin A1c Calcium 9.7 Phosphorus Magnesium Total Bilirubin 0.5 AST 23 ALT 15 Alkaline Phosphata se 46 Total Protein 7.0 Albumin 4.1 Globulin 2.9 Triglycerides Cholesterol LDL Cholesterol LDL Cholesterol, C alc Total VLDL Cholest todd HDL Cholesterol LDL/HDL Ratio Cholesterol/HDL Ra shari TSH 1.41 Urine Color Urine Appearance Urine pH Ur Specific Gravit y Urine Protein Urine Glucose (UA) Urine Ketones Urine Occult Blood Urine Nitrate Urine Bilirubin Urine Urobilinogen Ur Leukocyte Dawn ase Urine RBC Urine WBC Ur Squamous Epith Cells Urine Bacteria Urine Opiates Scre en Ur Barbiturates Sc reen Ur Phencyclidine S crn Ur Amphetamines Sc reen U Benzodiazepines Scrn Urine Cocaine Scre en U Marijuana (THC) Screen 03/27/19 17:50 WBC 12.1 H RBC 5.04 Hgb 15.5 Hct 47.6 MCV 94.4 H MCH 30.8 MCHC 32.6 RDW 14.0 Plt Count 189 MPV 9.5 Neut % (Auto) 68.6 Lymph % (Auto) 21.0 [place] % (Auto) 6.6 Eos % (Auto) 2.6 Baso % (Auto) 0.7 Neut # (Auto) 8.3 H Lymph # (Auto) 2.5 [place] # (Auto) 0.8 Eos # (Auto) 0.3 Baso # (Auto) 0.1 Nucleated RBC % (a uto) 0 Nucleated RBCs # 0.0 PT INR APTT Sodium Potassium Chloride Carbon Dioxide Anion Gap BUN Creatinine GFR Calculation Glucose POC Glucose Estimat Average Gl ucose Hemoglobin A1c Calcium Phosphorus Magnesium Total Bilirubin AST ALT Alkaline Phosphata se Total Protein Albumin Globulin Triglycerides Cholesterol LDL Cholesterol LDL Cholesterol, C alc Total VLDL Cholest todd HDL Cholesterol LDL/HDL Ratio Cholesterol/HDL Ra shari TSH Urine Color Urine Appearance Urine pH Ur Specific Gravit y Urine Protein Urine Glucose (UA) Urine Ketones Urine Occult Blood Urine Nitrate Urine Bilirubin Urine Urobilinogen Ur Leukocyte Dawn ase Urine RBC Urine WBC Ur Squamous Epith Cells Urine Bacteria Urine Opiates Scre en Ur Barbiturates Sc reen Ur Phencyclidine S crn Ur Amphetamines Sc reen U Benzodiazepines Scrn Urine Cocaine Scre en U Marijuana (THC) Screen Vitals: Last Vital Signs Temp 97.7 F 03/28/19 11:09 Pulse 61 03/28/19 11:09 Resp 20 H 03/28/19 11:09 BP 152/80 03/28/19 11:09 Pulse Ox 96 03/28/19 11:09 Discharge Plan Discharge Patient Disposition: Home, Self-Care Condition: Stable Prescriptions: New atorvastatin 40 mg Tablet 40 mg PO DAILY 30 Days Qty: 30 RF: 0 clopidogrel 75 mg Tablet 75 mg PO DAILY 30 Days Qty: 30 RF: 0 aspirin 81 mg Tablet,Delayed Release (Dr/Ec) 81 mg PO DAILY 30 Days Qty: 30 RF: 0 Coreg 6.25 mg tablet 6.25 mg PO BID 30 Days Qty: 60 RF: 0 amlodipine 5 mg tablet 5 mg PO DAILY PRN (Reason: blood pressure) 30 Days Qty: 14 RF: 0 Chantix Starting Month Box 0.5 mg (11)- 1 mg (42) tablets,dose pack See Rx Instructions .ROUTE .COMPLEX Qty: 53 RF: 0 Continued multivitamin Tablet 1 tab PO DAILY RF: 0 Flomax 0.4 mg Capsule 0.4 mg PO BEDTIME RF: 0 metformin 500 mg Tablet Extended Release 24 Hr 500 mg PO QPM RF: 0 Fish Oil 1,000 mg (120 mg-180 mg) Capsule 1 cap PO DAILY RF: 0 Discontinued carvedilol 25 mg tablet 12.5 mg PO BID RF: 0 clonidine HCl 0.1 mg tablet 0.1 mg PO DAILY PRN (Reason: Blood Pressure) RF: 0 atorvastatin 10 mg Tablet 10 mg PO QPM RF: 0 amlodipine 10 mg Tablet 10 mg PO DAILY RF: 0 valsartan 160 mg tablet 160 mg PO DAILY RF: 0 Discharge Orders: Discharge Order (Routine); Ordered 03/28/19 Ordered By: Praveen Trimble Other Ambulatory Orders: CV request echo ALEX GI lab (Routine) Timeframe: 2 Weeks Facility: [facility] - Location: Radiology Ordered By: Praveen Trimble Speech Language Pathology Eval and Treat Outpatient (Order) [facility] Facility: [facility] - Location: Speech Therapy [address] Ordered By: Praveen Trimble Referrals: Alice Patton MD [Physician] - (You have an follow-up appoinment with Dr. Patton on June 03 at 11:30a.m. If, you have questions or need to reschedule. Please call: ) Frankie Schafer MD [Physician] - (You have an follow-up appointment with Sydnie Kang at [facility] on Tuesday at 9:15a.m. To discuss a Alex as an Outpatient . If, you any questions or need to reschedule. Please, [phone] ) Mahamed Nazario MD [Primary Care Provider] - (You have an follow-up appointment with on Tuesday at 11a.m. If, you have any questions or need to reschedule. Please call: . Speech tharpcaitie at the [facility] will be contacting to schedule outpatinet speech tharpy in 2 weeks. If, you haven't heard from them by Tuesday. Please call: ) Discharge Diet: Cardiac Discharge Activity: Resume usual activity Patient Instructions: Aspirin/Codeine (By mouth), Amlodipine (By mouth), Atorvastatin (By mouth), Carvedilol (By mouth), Clopidogrel (By mouth), Varenicline (By mouth), Hypertension, Pacemaker (DC), Diabetes Mellitus Type 2 in Adults (DC), Self Care Measures After a Stroke (DC), Bradycardia (DC) Activity Restrictions/Additional Instructions: Antihypertensives modified Coreg dose changed. Check BP daily as directed and educated. If BP over 150mmhg take amlo 5mg once a day as needed ALEX in 2 weeks Discharge Date/Time: 03/28/19 15:30 Discharge Attestations Time Spent in Discharge Care*: greater than 30 min Specific Discharge Activities: Specific discharge activities: educating patient (how to check BP, smokng cessation) Time Spent in Smoking Cessation: Time spent discussing smoking cessation with patient: more than 10 minutes Status at Discharge: Cognitive status at discharge: cognitively intact , Behavioral status at discharge: cooperative , Functional status at discharge: independent ambulation Quality Metrics Clinical Quality Measures During this hospital stay, did patient experience: Stroke Contraindication to Antithrombotic: Antithrombotic prescribed Contraindication to Anticoagulation: Overlap treatment not indicated Contraindication to Statin: Statin prescribed Contraindication to tPA: Treatment not indicated Coding Level of Care Code Acute Personal Injury Attorney for Glenna James Diagnoses Cerebrovascular accident I63.9 HTN (hypertension) I10
--- NOTE | 2019-03-28 21:32 | USCV_ITS ---
Julius Rao Age: 64 Gender: M : 1955 Exam Date: 03/28/2019 08:30 Ordering Phys: Praveen Trimble MD Technologist: Donal Carlisle Exam Location: [facility] [place] Indication: STROKE BP: 133 / 90 HR: 61 Rhythm: Sinus Technical Quality: Good MEASUREMENTS (Male / Female) Normal Values 2D ECHO LVOT Diameter 2.1 cm LV Ejection Fraction MOD 2C 64.1 % LV Ejection Fraction 2C AL 63.7 % LA Diameter 4.2 cm LA Width 3.9 cm LA Height 5.5 cm RA Width 4.1 cm RA Height 5.0 cm Aorta at Sinotubular Diameter 3.1 cm M-MODE LV Diastolic Diameter MM 6.8 cm 4.2 - 5.9 / 3.9 - 5.3 cm LV Systolic Diameter MM 4.3 cm LV Ejection Fraction MM Teich 64.5 % IVS Diastolic Thickness MM 1.1 cm 0.6 - 1.0 / 0.6 - 0.9 cm IVS Systolic Thickness MM 1.7 cm LVPW Diastolic Thickness MM 1.6 cm 0.6 - 1.0 / 0.6 - 0.9 cm LVPW Systolic Thickness MM 2.0 cm RV Diastolic Diameter MM 1.9 cm MV E Point Septal Separation 1.7 cm DOPPLER AV Peak Velocity 478.0 cm/s LVOT Peak Velocity 80.0 cm/s AV Area Cont Eq vti 0.6 cm squared AV Area Cont Eq pk 0.6 cm squared MV Area PHT 5.0 cm squared Mitral E to A Ratio 0.6 MV E' Velocity 4.0 cm/s Mitral E to MV E' Ratio 17.4 Mitral E to LV E' Lateral Ratio 18.8 Mitral E to LV E' Septal Ratio 16.2 TR Peak Velocity 334.0 cm/s TR Peak Gradient 44.7 mmHg TV Peak E Velocity 128.0 cm/s Right Atrial Pressure 3.0 mmHg Pulmonary Artery Systolic Pressu 47.6 mmHg FINDINGS Left Ventricle Normal left ventricular cavity size. Increased left ventricular wall thickness. Severe left ventricular hypertrophy. Normal left ventricular systolic function. Left ventricular ejection fraction is estimated at 65 %. No regional wall motion abnormalities. Grade I diastolic dysfunction (abnormal relaxation filling pattern), normal to mildly elevated filling pressures. Abnormal septal motion consistent with pacemaker. Right Ventricle Normal right ventricular size and systolic function. Pacemaker wire visualized in the right ventricle. Right Atrium Right atrial pressure estimated at 3 mmHg. Normal-sized inferior vena cava. Left Atrium Left atrium not well visualized. Mildly increased left atrial size. Mitral Valve Structurally normal mitral valve. No mitral valve stenosis. Trace mitral valve regurgitation. Aortic Valve Bioprosthetic aortic valve well-seated. Possible bioprosthetic aortic valve stenosis, peak velocity 4.8 m/s, peak gradient 91 mmHg, mean gradient 44.6 mmHg, EVER 0.64 cm squared (LVOT=2.1 cm). Dimensionless valve index of 0.17. Trace to mild aortic valve regurgitation. Tricuspid Valve Structurally normal tricuspid valve. Trace tricuspid valve regurgitation. Pulmonic Valve Pulmonic valve not well visualized. Pericardium No pericardial effusion. Aorta Normal-sized aortic root. CONCLUSIONS 1. Normal left ventricular cavity size and systolic function. Severe concentric left ventricular hypertrophy. Left ventricular ejection fraction is estimated at 65 %. No regional wall motion abnormalities. Grade I diastolic dysfunction (abnormal relaxation filling pattern), normal to mildly elevated filling pressures. 2. Normal right ventricular size and systolic function. 3. Mildly increased left atrial size. 4. Possible bioprosthetic aortic valve stenosis, peak velocity 4.8 m/s, peak gradient 91 mmHg, mean gradient 44.6 mmHg, EVER 0.64 cm squared (LVOT=2.1 cm). Trace to mild aortic valve regurgitation. 5. When compared to previous echocardiogram dated 11/01/2018, bioprosthetic valve seems to have stenosis now. 6. Recommend repeat study for complete evaluation of bioprosthetic aortic valve (no charge to the patient). Luzmaria Sousa MD (Electronically Signed) Final Date: 29 March 2019 18:14 S
== END 2019-03-28 15:30 | disposition home or self-care (01) | DRG 65 ==
LOC: ER 19:44 → CSU 20:39
PROVIDERS: Admitting Provider Student in an Organized Health Care Education/Training Program; Emergency Provider Emergency Medicine; Family Provider Family Medicine; PCP Family Medicine; Visit Provider Student in an Organized Health Care Education/Training Program
DX: I63.9 Cerebral infarction, unspecified (principal); G81.90 Hemiplegia, unspecified affecting unspecified side; I10 Essential (primary) hypertension; E11.9 Type 2 diabetes mellitus without complications; F17.210 Nicotine dependence, cigarettes, uncomplicated; Z95.0 Presence of cardiac pacemaker; Z79.84 Long term (current) use of oral hypoglycemic drugs; Z95.2 Presence of prosthetic heart valve
CPT/HCPCS: 36415; 36416; 70450; 70496; 70498; 80053; 80061; 80307; 81003; 82962; 83036; 83735; 84100; 84443; 85025; 85610; 85730; 92523; 92610; 93005; 93306; 94664; 96372; 97162; 97165; 99282; J1650; J7030; J7050; Q9967

== ENCOUNTER 2019-04-18 07:29 | Outpatient (CLI) | payer MEDICARE, SELFPAY ==
[2019-04-17 15:57] VITALS: BMI 26.2
--- NOTE | 2019-04-18 07:54 | ANES.PREANES ---
Pre-Anesthetic Assessment Pre-Anesthetic Assessment: Height/Weight: Height 1.8 m Weight 85.275 kg Proposed Procedure: Operation Date: 04/18/19 08:05 Proposed Procedures p MARION(Not Applicable) - Alexia Byrd MD Social: Social History: Tobacco Exam: Pre-Anes Outpt Exam: alert, oriented x 3, clear to auscultation bilaterally and regular rate & rhythm Airway: Submandibular: WNL Cervical ROM: WNL MP: 2 Dentition: Partials (upper) CV/HEM: CV/HEM: HTN Comments: AVR, PPM : : None reported Hepatic: Hepatic: None reported GI: GI: None reported Metabolic: Metabolic: DM and Hyperlipidemia Musc/skel: Musc/skel: Lower Back Pain Neuropsych: Neuropsych: CVA (right side weak) Anesthetic Plan: ASA status: IV Anesthesia: Anesthesia Evaluation and MAC Risk of > 500 ml blood loss (7ml/kg in children): No PFSH Anesthesia PFSH: Medical History CHB (complete heart block) (Acute) HTN (hypertension) (Acute) T2DM (type 2 diabetes mellitus) (Acute) Surgical History Aortic valve replaced (Acute) S/P cardiac pacemaker procedure (Acute) Family History (Updated 03/27/19 @ 22:55 by Praveen Trimble MD) Other CAD (coronary artery disease) Family history of premature coronary artery disease Hypertension Stroke Social History Smoking and tobacco status: current every day smoker cigarettes Packs smoked per day: 0.5 Alcohol intake: former Household members: spouse Housing: House Marital status: Data Anesthesia Cardiac Studies: No Data to Display
[2019-04-18 08:42] LABS: Glucose Point of Care 128 mg/dL (70-110)
[2019-04-18] MEDS: sodium chloride 0.9% 1,000 ML 30 ML (08:57)
--- NOTE | 2019-04-18 09:03 | USCV_ITS ---
Julius Rao Age: 64 Gender: M : 1955 Exam Date: 04/18/2019 08:57 Ordering Phys: Alexia Byrd MD Technologist: Juany Strong [place]am [place] [facility] [place]ication: CVA BP: / HR: 65 Rhythm: Sinus Technical Quality: Adequate MEASUREMENTS (Male / Female) Normal Values 2D ECHO LVOT Diameter 2.0 cm DOPPLER AV Peak Velocity 294.0 cm/s LVOT Peak Velocity 81.0 cm/s AV Area Cont Eq vti 1.0 cm squared AV Area Cont Eq pk 0.9 cm squared Medications Patient given IV sedation by anesthesia service, for details please refer to the anesthesia report. Complications Patient tolerated procedure well. Proc. Components MARION was performed at multiple levels. FINDINGS Left Ventricle Concentric left hypertrophy with a normal ejection fraction of 60%. Right Ventricle Catheter/pacemaker wire in the right ventricular cavity. Right Atrium Catheter/pacemaker wire in the right atrial cavity. Left Atrium No evidence of atrial septal defect of foramen ovale noted by either color flow Doppler examination or saline contrast injection. LA Appendage The appendage was of normal size with normal contractility. No masses or thrombi noted IA Septum Appears to be intact with no evidence of any atrial septal defect or patent foramen ovale Mitral Valve Mild mitral valve regurgitation. Aortic Valve The bioprosthetic valve at the aortic position appears to be well-seated. No masses or vegetations were noted at the leaflet. The aortic leaflet appears to be moving fairly well. However based on the Doppler flow velocities, the valve area was calculated to be around 0.95 cm squared Tricuspid Valve No gross abnormalities noted. Trace to mild tricuspid regurgitation Pulmonic Valve No gross abnormalities noted Pericardium No pericardial effusion Aorta Mild diffuse plaques were noted in the ascending aorta. CONCLUSIONS 1. No intracardiac masses or vegetations noted 2. The left atrial appendage was found to be free of any thrombus or masses. Normal contractility. 3. The bioprosthetic valve with aortic position appears well- seated. The leaflet mobility appears to be fair. However the valve area is calculated to be 0.95 cm squared suggestive of moderately severe aortic valve stenosis. Possibly no significant change from the echocardiogram findings on 11/17/2016 4. Normal LV size ejection fraction around 55%. 5. Mild mitral regurgitation with a trace to mild tricuspid regurgitation 6. Intact interatrial septum Dr Achenkunju Carson MD FACC (Electronically Signed) Final Date: 18 April 2019 17:28 S
== END 2019-04-18 09:51 | disposition home or self-care (01) ==
PROVIDERS: Family Provider Family Medicine; PCP Family Medicine; Visit Provider Internal Medicine Cardiovascular Disease
PROC: (CPT 93312; principal; 2019-04-18 08:00)
DX: I63.412 Cerebral infarction due to embolism of left middle cerebral artery (principal)
CPT/HCPCS: 36416; 82962; 93312; 93320; 93325; 96365; J2001; J2704; J7030

== ENCOUNTER 2020-01-10 06:52 | Outpatient (CLI) | payer MEDICARE, SELFPAY ==
--- NOTE | 2020-01-10 07:15 | USCV_ITS ---
Julius Rao Age: 64 Gender: M : 1955 Exam Date: 01/10/2020 07:20 Ordering Phys: Frankie Schafer MD ([email or web address]) Technologist: Chica Siddiqi [place] [facility] [place] Indication: STENOSIS OF CAROTID ARTERY Risk Factors: Smoker. H/O 3 STROKES Previous Vascular Surgery: None Right Brachial BP: / Left Brachial BP: / Right Left Velocity (cm/s) Spectral Plaque Velocity (cm/s) Spectral Plaque Syst/Diast Broadening Syst/Diast Broadening 51.30/ 18.70 Prox CCA 53.20 / 15.80 51.10/ 14.70 Mid CCA 73.80 / 23.30 45.40/ 12.50 Distal CCA 64.50 / 17.10 44.70/ 16.80 Prox ICA 55.50 / 22.20 56.50/ 21.00 Mid ICA 54.80 / 19.00 46.10/ 19.80 Distal ICA 48.90 / 19.80 57.60 ECA 59.40 1.11 ICA/CCA 0.75 Antegrade Vertebral Antegrade 31.50/ 10.70 cm/s 44.00/ 14.50 cm/s Tri Subclavian Tri 66.00 73.60 CONCLUSIONS Right ICA stenosis <50%. Mild to moderate atheromatous plaque right carotid bulb/ICA. Left ICA stenosis <50%. Mild to moderate atheromatous plaque left carotid bulb/ICA. Normal antegrade Doppler flow noted in the right vertebral artery. Normal antegrade Doppler flow noted in the left vertebral artery. Papi King MD (Electronically Signed) Final Date: 10 January 2020 14:21 S
== END 2020-01-10 06:53 | disposition home or self-care (01) ==
LOC: US 06:53
PROVIDERS: PCP Family Medicine; Visit Provider Internal Medicine Cardiovascular Disease
DX: I65.23 Occlusion and stenosis of bilateral carotid arteries (principal); Z72.0 Tobacco use; Z86.73 Personal history of transient ischemic attack (TIA), and cerebral infarction without residual deficits
CPT/HCPCS: 93880

== ENCOUNTER 2020-07-11 10:13 | Outpatient (CLI) | payer MEDICARE, SELFPAY ==
--- NOTE | 2020-07-11 10:15 | USCV_ITS ---
Julius Rao Age: 65 Gender: M : 1955 Exam Date: 07/11/2020 10:30 Ordering Phys: Frankie Schafer MD ([email or web address]) Technologist: Kiersten Garay Exam Location: [facility] [place] Indication: PROSTHETIC HEART VALVE BP: / HR: 66 Rhythm: Sinus Technical Quality: Adequate MEASUREMENTS (Male / Female) Normal Values 2D ECHO LV Diastolic Diameter PLAX 4.8 cm 4.2 - 5.9 / 3.9 - 5.3 cm LV Systolic Diameter PLAX 3.5 cm LV Chamber Size 4.8 cm IVS Diastolic Thickness 1.6 cm 0.6 - 1.0 / 0.6 - 0.9 cm IVS Systolic Thickness 2.3 cm LVPW Diastolic Thickness 2.3 cm 0.6 - 1.0 / 0.6 - 0.9 cm LVPW Systolic Thickness 2.7 cm RV Chamber Size 3.2 cm LVOT Diameter 2.0 cm LV Ejection Fraction 2D Teich 54.0 % LV Ejection Fraction MOD 2C 42.3 % LV Ejection Fraction 2C AL 40.8 % LA Diameter 3.1 cm LA Width 3.4 cm LA Height 5.3 cm RA Width 4.7 cm RA Height 4.3 cm M-MODE LV Diastolic Diameter MM 7.4 cm 4.2 - 5.9 / 3.9 - 5.3 cm LV Systolic Diameter MM 5.2 cm LV Ejection Fraction MM Teich 54.7 % IVS Diastolic Thickness MM 0.7 cm 0.6 - 1.0 / 0.6 - 0.9 cm IVS Systolic Thickness MM 1.0 cm LVPW Diastolic Thickness MM 1.2 cm 0.6 - 1.0 / 0.6 - 0.9 cm LVPW Systolic Thickness MM 1.5 cm Aortic Annulus Diameter 2.8 cm LA Ao Ratio MM 1.1 MV E Point Septal Separation 1.1 cm DOPPLER AV Peak Velocity 271.3 cm/s LVOT Peak Velocity 110.3 cm/s AV Area Cont Eq vti 1.7 cm squared AV Area Cont Eq pk 1.3 cm squared MV Area PHT 2.8 cm squared Mitral E to A Ratio 0.7 MV E' Velocity 38.0 cm/s Mitral E to MV E' Ratio 11.7 Mitral E to LV E' Lateral Ratio 14.0 Mitral E to LV E' Septal Ratio 10.1 TR Peak Velocity 161.3 cm/s TR Peak Gradient 10.4 mmHg TV Peak E Velocity 65.0 cm/s Right Atrial Pressure 3.0 mmHg Pulmonary Artery Systolic Pressu 13.4 mmHg PV Peak Velocity 58.0 cm/s RV Acceleration Time 0.1 s RV Ejection Time 0.3 s RV AcT/ET 0.3 FINDINGS Left Ventricle Normal left ventricular cavity size. Normal left ventricular systolic function. Abnormal septal motion consistent with conduction abnormality. Left ventricular ejection fraction is estimated at 55 %. Grade I/IV diastolic dysfunction (abnormal relaxation filling pattern), normal to mildly elevated filling pressures. Right Ventricle The right ventricle is normal in size and function. Right Atrium The right atrium is normal in size. Left Atrium The left atrium is normal in size. Mitral Valve Structurally normal mitral valve without significant stenosis or prolapse. There is no mitral regurgitation. Aortic Valve Bioprosthetic aortic valve is sitting in normal position without significant valvular or paravalvular leak. Velocity across the aortic valve is 2.3 m/s peak gradient 22 mmHg mean gradient 10 mmHg Tricuspid Valve Structurally normal tricuspid valve without significant stenosis or regurgitation. Pulmonary artery systolic pressure is normal. Pulmonic Valve Structurally normal pulmonic valve without significant stenosis. There is no pulmonic regurgitation. Pericardium Normal pericardium without effusion. Aorta Normal ascending aorta dimension. CONCLUSIONS 1-Normal left ventricular cavity size. Normal left ventricular systolic function. Abnormal septal motion consistent with conduction abnormality. Left ventricular ejection fraction is estimated at 55 %. Grade I/IV diastolic dysfunction (abnormal relaxation filling pattern), normal to mildly elevated filling pressures. 2-Bioprosthetic aortic valve is sitting in normal position without significant valvular or paravalvular leak. Velocity across the aortic valve is 2.3 m/s peak gradient 22 mmHg mean gradient 10 mmHg 3-There is no pericardial effusion. 4-Pulmonary artery systolic pressure is within normal limits. 5-Right atrial pressure is around 5 mm of mercury. 6-. No significant change since the prior echocardiogram study of 03/29/2019 . Frankie Schafer MD (Electronically Signed) Final Date: 13 July 2020 15:44 S
== END 2020-07-11 10:14 | disposition home or self-care (01) ==
PROVIDERS: PCP Family Medicine; Visit Provider Internal Medicine Cardiovascular Disease
DX: Z95.2 Presence of prosthetic heart valve (principal); R06.02 Shortness of breath
CPT/HCPCS: 93306

== ENCOUNTER 2020-11-19 11:32 | Outpatient (CLI) | payer MEDICARE, SELFPAY ==
[2020-11-19 11:50] VITALS: BP 143/88; PULSE 71; RESP 16; TEMP 36.8; O2SAT 98; BMI 25.9
[2020-11-19 12:18] VITALS: BP 138/63; PULSE 62; RESP 16; O2SAT 96
[2020-11-19 13:10] VITALS: BP 136/74; PULSE 61; RESP 14; TEMP 36.7; O2SAT 97
== END 2020-11-19 11:33 | disposition home or self-care (01) ==
LOC: OPS 11:37
PROVIDERS: PCP Family Medicine; Visit Provider Nurse Practitioner Family
DX: U07.1 COVID-19 (principal)
CPT/HCPCS: 96365

== ENCOUNTER → 2021-08-21 08:54 | Outpatient (BNVA) | payer MEDICARE, SELFPAY | PROVIDERS: PCP Family Medicine; Visit Provider Internal Medicine Cardiovascular Disease | DX: Z45.010 Encounter for checking and testing of cardiac pacemaker pulse generator [battery] (principal) | CPT/HCPCS: 93280 ==

== ENCOUNTER 2021-12-30 09:11 | Outpatient (CLI) | payer MEDICARE, SELFPAY ==
--- NOTE | 2021-12-30 | CT_ITS ---
WS: [id number] LDCT LUNG CANCER SCREENING TECHNIQUE: Noncontrast CT of the chest with coronal and sagittal reformatted images. CLINICAL INFORMATION: HX TOBACCO USE COMPARISON: None. DLP: 89.77 mGy.cm DIvol: Mean CTDIvol: 1.60 (mGy) All CT scans at [facility] use at least one of these dose optimization techniques: automat ed exposure control; mA and/or kV adjustment per patient size (includes targeted exams where dose is matched to clinical indication); or iterative reconstruction. FINDINGS: Both lungs are well aerated. No suspicious pulmonary parenchymal opacities. No acute pulmon scarlet infiltrates. Atrophic RIGHT kidney. Partially visualized RIGHT renal cortical cyst. RIGHT adrenal adenoma measurin g 12 mm. LEFT adrenal gland is normal. Normal GE junction. Aortic calcification. Normal caliber thoracic aorta. Coronary calcification. No mediastinal or hilar lymphadenopathy. A few slightly prominent pretracheal lymph nodes likely reactive. Hypertrophic changes thoracic spine. Sternotomy. Slight bibasilar atelectasis. Cardiac pacer. CT/CT lung screening [id number] IMPRESSION: LUNG-RADS: 1-Negative FOLLOW UP: 12 Month: Continue annual screening with LDCT
== END 2021-12-30 09:12 | disposition home or self-care (01) ==
PROVIDERS: PCP Family Medicine; Visit Provider Family Medicine
DX: Z12.2 Encounter for screening for malignant neoplasm of respiratory organs (principal); Z87.891 Personal history of nicotine dependence
CPT/HCPCS: 71271

== ENCOUNTER → 2022-01-04 09:51 | Outpatient (BNVA) | payer MEDICARE, SELFPAY | PROVIDERS: PCP Family Medicine; Visit Provider Internal Medicine Cardiovascular Disease | DX: I10 Essential (primary) hypertension (principal); I77.9 Disorder of arteries and arterioles, unspecified; Z95.0 Presence of cardiac pacemaker; E11.9 Type 2 diabetes mellitus without complications; Z79.84 Long term (current) use of oral hypoglycemic drugs; Z95.2 Presence of prosthetic heart valve; I69.321 Dysphasia following cerebral infarction; F17.210 Nicotine dependence, cigarettes, uncomplicated | CPT/HCPCS: 93005; 99214 ==

== ENCOUNTER 2022-02-22 10:17 | Outpatient (CLI) | payer MEDICARE, SELFPAY ==
--- NOTE | 2022-02-22 | USCV_ITS ---
Julius Rao Age: 67 Gender: M : 1955 Exam Date: 02/22/2022 11:36 Ordering Phys: Alexia Byrd MD ([email or web address]) Technologist: Dylan Pimentel [place]am [place] [facility] [place]ication: AVR BP: 147 / 85 HR: Rhythm: Sinus Technical Quality: Adequate MEASUREMENTS (Male / Female) Normal Values 2D ECHO LV Diastolic Diameter PLAX 5.1 cm 4.2 - 5.9 / 3.9 - 5.3 cm LV Systolic Diameter PLAX 3.1 cm IVS Diastolic Thickness 1.3 cm 0.6 - 1.0 / 0.6 - 0.9 cm IVS Systolic Thickness 1.3 cm LVPW Diastolic Thickness 2.1 cm 0.6 - 1.0 / 0.6 - 0.9 cm LVPW Systolic Thickness 2.3 cm LVOT Diameter 2.0 cm LV Ejection Fraction 2D Teich 69.9 % LV Ejection Fraction MOD 2C 51.7 % LV Ejection Fraction 2C AL 48.3 % LA Diameter 3.9 cm LA Width 3.1 cm LA Height 5.9 cm RA Width 3.8 cm RA Height 5.9 cm Aorta at Sinotubular Diameter 3.1 cm IVC Diameter 1.3 cm M-MODE Aortic Annulus Diameter 2.8 cm LA Ao Ratio MM 1.4 MV E Point Septal Separation 0.7 cm DOPPLER AV Peak Velocity 271.5 cm/s LVOT Peak Velocity 77.0 cm/s AV Area Cont Eq vti 1.0 cm squared AV Area Cont Eq pk 0.9 cm squared MV Peak Velocity 101.0 cm/s MV Area PHT 4.3 cm squared Mitral E to A Ratio 0.6 MV E' Velocity 26.0 cm/s Mitral E to MV E' Ratio 8.9 Mitral E to LV E' Lateral Ratio 9.5 Mitral E to LV E' Septal Ratio 8.6 TR Peak Velocity 360.6 cm/s TR Peak Gradient 52.0 mmHg TR Mean Velocity 286.5 cm/s TR Mean Gradient 35.2 mmHg TR Velocity Time Integral 108.1 cm Right Atrial Pressure 3.0 mmHg Pulmonary Artery Systolic Pressu 55.0 mmHg PV Peak Velocity 87.7 cm/s RV Acceleration Time 0.1 s RV Ejection Time 0.3 s RV AcT/ET 0.4 FINDINGS Left Ventricle Normal left ventricular size and increased wall thickness. Severe concentric left ventricular hypertrophy. Mildly decreased left ventricular systolic function. Left ventricular ejection fraction is estimated at 50 %. There is mild hypokinesis of apical anterior wall. Grade I diastolic dysfunction (abnormal relaxation filling pattern), normal to mildly elevated filling pressures. Right Ventricle Normal right ventricular size and systolic function. RVSP could not be calculated due to incomplete tricuspid regurgitation velocity profile. Right Atrium Normal right atrial size. Left Atrium Mildly increased left atrial size. Mitral Valve Mild mitral annular calcification. No mitral valve stenosis. Trace to mild mitral valve regurgitation. Aortic Valve Bioprosthetic aortic valve well seated and normally functioning. Peak velocity 2.8 m/s, peak gradient 31 mm Hg, mean gradient 16.4 mmHg, EVER 1 cm squared. No valvular or rafa-valvular aortic valve regurgitation. Tricuspid Valve Structurally normal tricuspid valve. Trace tricuspid valve regurgitation. Pulmonic Valve Pulmonic valve not well visualized. No pulmonary valve stenosis. Trace pulmonary valve regurgitation. Pericardium No pericardial effusion. Aorta Normal size aortic root and proximal ascending aorta. IVC Normal IVC dimension with >50% respiratory change of the inferior vena cava. CONCLUSIONS 1. Normal left ventricular size. Severe concentric left ventricular hypertrophy. Mildly decreased left ventricular systolic function. Left ventricular ejection fraction is estimated at 50-55 %. There is mild hypokinesis of apical anterior wall. Grade I diastolic dysfunction (abnormal relaxation filling pattern), normal to mildly elevated filling pressures. 2. Mild aortic valve stenosis, peak velocity 2.8 m/s, peak gradient 31 mm Hg, mean gradient 16.4 mmHg, EVER 1 cm squared. 3. Trace to mild mitral valve regurgitation. 4. When compared to study dated 07/11/20, there my be mild decrease in LV function now. Luzmaria Sousa MD (Electronically Signed) Final Date: 27 February 2022 17:06 S
--- NOTE | 2022-02-22 10:15 | USCV_ITS ---
Julius Rao Age: 67 Gender: M : 1955 Exam Date: 02/22/2022 11:09 Ordering Phys: Alexia Byrd MD ([email or web address]) Technologist: Dylan Pimentel [place] [facility] [place]ication: carotid occlusion Risk Factors: Previous Vascular Surgery: Right Brachial BP: / Left Brachial BP: / Right Left Velocity (cm/s) Spectral Plaque Velocity (cm/s) Spectral Plaque Syst/Diast Broadening Syst/Diast Broadening 43.70/ 10.80 Prox CCA 50.00 / 12.50 33.30/ 8.10 Mid CCA 50.60 / 16.40 44.10/ 12.40 Distal CCA 48.00 / 15.80 42.50/ 13.00 Prox ICA 37.20 / 13.70 53.40/ 15.60 Mid ICA 43.20 / 15.80 46.90/ 17.90 Distal ICA 69.10 / 20.40 48.70 ECA 67.70 1.61 ICA/CCA 0.85 Antegrade Vertebral Antegrade 23.00/ 10.10 cm/s 46.50/ 12.30 cm/s Bi Subclavian Bi 82.00 57.50 FINDINGS Comparison:. 01/10/20. No significant elevation of systolic or diastolic velocities. Waveforms are normal. Mild scattered calcified plaque through the bifurcation. Antegrade vertebral arteries. CONCLUSIONS Bilateral ICA stenosis less than 50%. No interval change in stenosis since prior exam. Dr. Anabela Garay DO (Electronically Signed) Final Date: 22 February 2022 13:10 S
== END 2022-02-22 10:18 | disposition home or self-care (01) ==
PROVIDERS: PCP Family Medicine; Visit Provider Internal Medicine Cardiovascular Disease
DX: Z95.2 Presence of prosthetic heart valve (principal); R06.09 Other forms of dyspnea; I65.23 Occlusion and stenosis of bilateral carotid arteries; I35.0 Nonrheumatic aortic (valve) stenosis; I34.0 Nonrheumatic mitral (valve) insufficiency
CPT/HCPCS: 93306; 93880

== ENCOUNTER → 2022-03-02 13:07 | Outpatient (BNVA) | payer MEDICARE, SELFPAY | PROVIDERS: PCP Family Medicine; Visit Provider Nurse Practitioner Family | DX: I10 Essential (primary) hypertension (principal); I77.9 Disorder of arteries and arterioles, unspecified; F17.210 Nicotine dependence, cigarettes, uncomplicated | CPT/HCPCS: 99214 ==

== ENCOUNTER → 2022-07-12 10:00 | Outpatient (BNVA) | payer MEDICARE, SELFPAY | PROVIDERS: PCP Family Medicine; Visit Provider Internal Medicine Cardiovascular Disease | DX: Z95.2 Presence of prosthetic heart valve (principal); Z95.0 Presence of cardiac pacemaker; E11.9 Type 2 diabetes mellitus without complications; Z79.84 Long term (current) use of oral hypoglycemic drugs; I10 Essential (primary) hypertension; I77.9 Disorder of arteries and arterioles, unspecified; I69.321 Dysphasia following cerebral infarction; F17.210 Nicotine dependence, cigarettes, uncomplicated; Z79.82 Long term (current) use of aspirin | CPT/HCPCS: 99214 ==

== ENCOUNTER → 2022-12-30 15:55 | Outpatient (BNVA) | payer MEDICARE, SELFPAY | PROVIDERS: PCP Family Medicine; Visit Provider Internal Medicine Cardiovascular Disease | DX: Z45.010 Encounter for checking and testing of cardiac pacemaker pulse generator [battery] (principal) | CPT/HCPCS: 93296 ==

== ENCOUNTER 2023-01-12 13:23 | Outpatient (CLI) | payer MEDICARE, SELFPAY ==
--- NOTE | 2023-01-12 13:39 | CT_ITS ---
WS: [id number] LDCT LUNG CANCER SCREENING HISTORY: NICOTINE DEPENDENCE, CIGARETTES TECHNIQUE: Axial imaging performed from the apices to 1 cm below the costophrenic angles. Coronal and sagittal reformats are submitted with axial MIP series. All CT scans at [facility] use at least one of these dose optimization techniques: automated exposure control; mA and/or kV adjustment per patient size (includes targeted exams where dose is matched to clinical indication); or iterativ e reconstruction. DLP: 73.61 mGy.cm DIvol: Mean CTDIvol: 1.30 (mGy) COMPARISON: 12/30/2021 Diagnostic quality: Satisfactory Lungs: Chronic emphysema with mild flattening of the diaphragms. No suspicious masses or nodules. Gra nulomata LEFT lower lobe. No endobronchial lesions. Heart: Prior CABG. Heart is slightly enlarged. No pericardial effusion.. Other findings: LEFT subclavian defibrillator/pacer. Mediastinal and hilar lymph nodes are very simil ar in size to the prior examination. No adenopathy. Moderate atherosclerosis aorta. RIGHT renal cyst. Cortical thinning upper pole RIGHT kidney. RIGHT adrenal adenoma measures 13 mm. IMPRESSION: CT/CT lung screening [id number] LUNG-RADS: 2-Benign Appearance or Behavior FOLLOW UP: 12 Month: Continue annual screening with LDCT OTHER FINDINGS (S MODIFIER): None.
== END 2023-01-12 13:24 | disposition home or self-care (01) ==
LOC: RAD 13:23
PROVIDERS: PCP Family Medicine; Visit Provider Family Medicine
DX: Z12.2 Encounter for screening for malignant neoplasm of respiratory organs (principal); F17.210 Nicotine dependence, cigarettes, uncomplicated
CPT/HCPCS: 71271

== ENCOUNTER → 2023-01-31 12:15 | Outpatient (BNVA) | payer MEDICARE, SELFPAY | PROVIDERS: PCP Family Medicine; Visit Provider Internal Medicine Cardiovascular Disease | DX: R07.9 Chest pain, unspecified (principal); Z95.0 Presence of cardiac pacemaker; Z95.2 Presence of prosthetic heart valve; E11.9 Type 2 diabetes mellitus without complications; I10 Essential (primary) hypertension; I77.9 Disorder of arteries and arterioles, unspecified; R94.31 Abnormal electrocardiogram [ECG] [EKG] | CPT/HCPCS: 93005; 99214 ==

== ENCOUNTER 2023-02-14 08:22 | Outpatient (CLI) | payer MEDICARE, SELFPAY ==
--- NOTE | 2023-02-14 08:45 | USCV_ITS ---
Julius Rao Age: 68 Gender: M : 1955 Exam Date: 02/14/2023 08:53 Ordering Phys: Alexia Byrd MD ([email or web address] [place]) Technologist: Chiara Sands [place] [facility] [place] Indication: prosthetic AOV BP: 133 / 87 HR: 120 Rhythm: Sinus Technical Quality: Good MEASUREMENTS (Male / Female) Normal Values 2D ECHO LV Diastolic Diameter PLAX 4.6 cm 4.2 - 5.9 / 3.9 - 5.3 cm LV Systolic Diameter PLAX 4.1 cm IVS Diastolic Thickness 2.2 cm 0.6 - 1.0 / 0.6 - 0.9 cm IVS Systolic Thickness 2.0 cm LVPW Diastolic Thickness 1.7 cm 0.6 - 1.0 / 0.6 - 0.9 cm LVPW Systolic Thickness 2.0 cm LVOT Diameter 2.0 cm LV Ejection Fraction 2D Teich 24.7 % LV Ejection Fraction MOD 2C 59.5 % LV Ejection Fraction 2C AL 60.9 % LA Diameter 3.5 cm LA Width 3.1 cm LA Height 5.3 cm RA Width 2.5 cm RA Height 4.2 cm Aorta at Sinotubular Diameter 3.8 cm IVC Diameter 1.5 cm M-MODE Aortic Annulus Diameter 4.1 cm LA Ao Ratio MM 0.8 MV E Point Septal Separation 0.8 cm DOPPLER AV Peak Velocity 303.3 cm/s LVOT Peak Velocity 78.0 cm/s AV Area Cont Eq vti 1.0 cm squared AV Area Cont Eq pk 0.8 cm squared MV Peak Velocity 107.0 cm/s MV Area PHT 2.8 cm squared Mitral E to A Ratio 0.6 MV E' Velocity 36.0 cm/s Mitral E to MV E' Ratio 14.9 Mitral E to LV E' Lateral Ratio 13.4 Mitral E to LV E' Septal Ratio 16.8 TR Peak Velocity 198.0 cm/s TR Peak Gradient 15.7 mmHg Right Atrial Pressure 5.0 mmHg Pulmonary Artery Systolic Pressu 20.7 mmHg PV Peak Velocity 95.0 cm/s RV Acceleration Time 0.1 s RV Ejection Time 0.3 s RV AcT/ET 0.4 FINDINGS Left Ventricle Moderate left ventricular hypertrophy. Normal left ventricular size, systolic function is moderately reduced, LVEF 40-45% with mid-distal anterior and anteroseptal hyopkinesis. Grade II disatolic dysfunction. Right Ventricle Normal right ventricular size and systolic function. Right Atrium Normal right atrial size. Left Atrium Mildly increased left atrial size. Mitral Valve Thickened mitral valve. Mitral annular calcification. Mild mitral valve regurgitation. Aortic Valve Thickened aortic valve. Aortic valve sclerosis. No aortic valve stenosis. Trace aortic valve regurgitation. Aortic valve peak gradient 37 mmHg, mean gradient 20 mmHg. Tricuspid Valve Tricuspid valve not well visualized. Mild tricuspid valve regurgitation. Pulmonic Valve Pulmonic valve not well visualized. Mild pulmonary valve regurgitation. Pericardium small circumferential pericardial effusion. Aorta Normal size aortic root and proximal ascending aorta. IVC Normal IVC dimension with >50% respiratory change of the inferior vena cava. CONCLUSIONS Moderate concentric LVH. Mild to moderate LV LV systolic dysfunction, estimated LVEF 40 to 45%. Thickened mitral valve with mild mitral regurgitation Thickened sclerotic aortic valve with mild aortic stenosis. Normal right ventricle and pulmonary pressure. Jacob Valdivia MD (Electronically Signed) Final Date: 14 February 2023 19:50 S
== END 2023-02-14 08:23 | disposition home or self-care (01) ==
LOC: RAD 08:22
PROVIDERS: PCP Family Medicine; Visit Provider Internal Medicine Cardiovascular Disease
DX: R06.09 Other forms of dyspnea (principal); I34.0 Nonrheumatic mitral (valve) insufficiency; I07.1 Rheumatic tricuspid insufficiency; I35.1 Nonrheumatic aortic (valve) insufficiency
CPT/HCPCS: 93306

== ENCOUNTER → 2023-04-06 11:22 | Outpatient (BNVA) | payer MEDICARE, SELFPAY | PROVIDERS: PCP Family Medicine; Visit Provider Internal Medicine Cardiovascular Disease | DX: Z45.010 Encounter for checking and testing of cardiac pacemaker pulse generator [battery] (principal) | CPT/HCPCS: 93296 ==

== ENCOUNTER 2023-06-02 07:23 | Outpatient (CLI) | payer MEDICARE, SELFPAY ==
[2023-06-02 07:47] VITALS: BMI 26.4
--- NOTE | 2023-06-02 07:48 | ECG_ITS ---
[facility] Test Date: 2023-06-02 Pat Name: Julius Rao Department: Room: Gender: Male Network Lead: : 1955 Requested By: Sydnie Kang Order Number: [id number] Turner MD: Corby Vargas M.D. Interpretive Statements NAME OF STUDY: LEXISCAN SESTAMIBI STRESS TEST INDICATION: [POST AVR; LV SYSTOLIC DYSFUNCTION] Procedure: At the baseline, the blood pressure was 124/80 mmHg with a heart rate of 77 bpm. The electrocardiogram showed paced rhythm. The Lexiscan was infused over a period of 20 seconds. A total of 0.4 mg of Lexiscan was infused. The stress phase was continued for a total of 5 minutes. Heart rate was at the end of stress phase was 62 bpm and a blood pressure of 120/56mmHg. The EKG at the peak infusion did not show any changes. Sestamibi was injected 20 seconds after the Lexiscan infusion. Blood pressure at the end of recovery phase was 111/77 mmHg with a heart rate of 60 bpm. Conclusion: 1. Normal EKG response to Lexiscan infusion 2. No Lexiscan induced chest pain or cardiac arrhythmia. 3. Normal blood pressure and heart rate response. 4. Sestamibi/sestamibi perfusion scan pending; see separate report. Electronically Signed On 06-20-2023 11:42:33 CDT by Corby Vargas M.D. [email or web address]
--- NOTE | 2023-06-02 07:49 | NMCV_ITS ---
NM estefani perf SPECT r/s* [id number] Julius Rao Age: 68 Gender: M : 1955 Exam Date: 06/02/2023 08:38 Ordering Phys: Sydnie Kang Technologist: PAU Kendrick Exam Location: [facility] Indications: HYPERTENSION STRESS TEST Please see separate stress test report in [facility] for full findings IMAGE PROTOCOL Rest/Stress 1 Lexiscan Day Radiopharmaceutical Dose (mCi) Administration Site Administered by Rest: Tc-99m 10.8 IV PAU Peguero Sestamibi Stress:Tc-99m 32.4 IV PAU Peguero Sestamibi Rest: 02-Jun-2023 60 Discovery 630 Stress: 02-Jun-2023 30 Discovery 630 0.4mg Lexiscan. Images obtained in supine and prone position. SPECT RESULTS Technical Quality: Excellent Raw Data Analysis: Normal Image Corrections: No attenuation or motion correction applied Summed Stress Score: 7 Summed Rest Score: 7 Summed Difference Score: 2 PERFUSION FINDINGS There is large sized, severe intensity, mostly fixed perfusion defect in the inferior wall. 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 Small areas of partially reversible perfusion defects noted in the apical and inferolateral wall. This is consistent with small sized areas of prior infarcts with minimal rafa- infarct ischemia in LAD and Left circumflex artery territories. FUNCTIONAL RESULTS (calculated via Gated SPECT) Stress Image LV EF (%): 38 Stress EDV (mL):227 TID: 1.07 Stress ESV (mL):140 FUNCTIONAL FINDINGS: LV systolic function is mild to moderately reduced with EF of 38%. IMPRESSIONS 1. Abnormal myocardial perfusion imaging with large areas of prior infarct in RCA territory with minimal rafa-infarct ischemia. 2. Small areas of prior infarct with minimal rafa-infarct ischemia in the LAD and left circumflex artery territories. 3. LV systolic function is mildly moderately reduce with EF of 38% Corby Vargas MD (Electronically Signed) Final Date: 06 June 2023 11:20 S
[2023-06-02] MEDS: regadenoson 0.4 Mg/5 ml Syringe 0.400000000000000022 MG IVP (10:12)
[2023-06-02 10:25] VITALS: BP 111/72; PULSE 60
== END 2023-06-02 07:24 | disposition home or self-care (01) ==
PROVIDERS: PCP Family Medicine; Visit Provider Nurse Practitioner Family
DX: Z95.2 Presence of prosthetic heart valve (principal); I11.9 Hypertensive heart disease without heart failure; I25.2 Old myocardial infarction
CPT/HCPCS: 36415; 78452; 93017; 96374; A9500; J2785

== ENCOUNTER 2023-06-06 16:45 | Outpatient (CLI) | payer MEDICARE, SELFPAY ==
--- NOTE | 2023-06-06 16:46 | USCV_ITS ---
Maira Julius Age: 68 Gender: M : 1955 Exam Date: 06/06/2023 16:55 Ordering Phys: Mahamed Nazario MD Technologist: CT Exam Location: [facility] [place] Indication: palp area rt neck Risk Factors: Previous Vascular Surgery: Right BP: / Left BP: / RIGHT LEFT PSV PSV (cm/s) (cm/s) Waveform Waveform Biphasic 81.0 Subclavian Proximal Biphasic 55.9 Subclavian Distal FINDINGS Hypoechoic area measuring 1.4 x 1.6 cm and was also able to subclavian CONCLUSIONS Hypoechoic area of, measuring 1.4 x 1.6 cm above the subclavian, on the right side, suggesting hematoma No blood flow was noted in this area Dr Alexia Byrd MD FAC (Electronically Signed) Final Date: 07 June 2023 13:57 S
== END 2023-06-06 16:46 | disposition home or self-care (01) ==
LOC: RAD 16:45
PROVIDERS: PCP Family Medicine; Visit Provider Family Medicine
DX: I72.8 Aneurysm of other specified arteries (principal)
CPT/HCPCS: 93931

== ENCOUNTER 2023-06-08 12:17 | Outpatient (CLI) | payer MEDICARE, SELFPAY ==
--- NOTE | 2023-06-08 12:24 | CT_ITS ---
WS: [id number] CT CHEST TECHNIQUE: Contrast enhanced CT of the chest with coronal and sagittal reformatted images. CLINICAL INFORMATION: ANEURYSM COMPARISON: CT lung screening 01/12/2023 DLP: 764.[address] scans at [facility] use at least one of these dose optimization techniques: automated e xposure control; mA and/or kV adjustment per patient size (includes targeted exams where dose is matc hed to clinical indication); or iterative reconstruction. FINDINGS: Aortic calcification. Coronary calcification. Prominent anterior mediastinal and peribronchial lymph nodes unchanged since the prior lung screening CT 01/12/2023. Normal caliber proximal main pulmonary arteries. No axillary lymphadenopathy. Prior sternotomy. Cardiac pacer. Aortic valve replacement. A few calcified granulomas. Slight bibasil ar atelectasis. Moderate thoracic kyphosis and hypertrophic changes thoracic spine. RIGHT adrenal lesion unchanged si nce the prior lung screening CT likely adenoma measuring 1.4 cm. Partially visualized RIGHT renal cys t. IMPRESSION: 1. Chronic emphysematous changes. No suspicious pulmonary parenchymal abnormalities. 2. Sternotomy with prior CABG. 3. Prominent intra mediastinal and peribronchial lymph nodes unchanged since the prior examination. 4. Stable RIGHT adrenal adenoma. 5. RIGHT posterior cervical space lesion is described on the neck CT
--- NOTE | 2023-06-08 12:24 | CT_ITS ---
WS: [id number] CT NECK TECHNIQUE: Contrast-enhanced CT of the neck with coronal and sagittal reformatted images. CLINICAL INFORMATION: ANEURYSM COMPARISON: None. DLP: 764.[address] scans at [facility] use at least one of these dose optimization techniques: automated e xposure control; mA and/or kV adjustment per patient size (includes targeted exams where dose is matc hed to clinical indication); or iterative reconstruction. FINDINGS: In the posterior cervical space, there is an ovoid lesion with thin surrounding capsule measuring halima roximately 4.5 x 3.6 cm. Associated enhancing internal nodularity enhances to the same degree as skel etal muscle. Mild surrounding induration. A few surrounding peripheral vessels. No evidence of active hemorrhage. This corresponds to the lesion seen on the recent ultrasound. Differential consideration s include hematoma, or soft tissue lesion such as sarcoma or liposarcoma, or less likely conglomerate lymphadenopathy. Recommend ultrasound-guided biopsy in further evaluation. On the prior CTA 2020 the re was a small ovoid lipoma in this area Paranasal sinuses are well aerated. Mastoid air cells are well aerated. Normal posterior nasopharynx and parapharyngeal fat. Parotid glands are normal. Normal submandibular glands. No evidence of suprag lottic or glottic mass. Normal subglottic airway. No enlarged cervical lymph nodes. Moderate spondyli tic changes cervical spine. IMPRESSION: 1. Indeterminate ovoid lesion in the RIGHT posterior cervical space corresponds to the ultrasound fi ndings. Differential considerations include complex hematoma versus soft tissue lesion such as liposa rcoma or sarcoma. Recommend further evaluation with ultrasound-guided biopsy. 2. No other acute findings. Notified Mahamed Nazario MD at 06/08/2023 2:54 PM.
[2023-06-08] MEDS: iohexol 350 mg/mL 500 mL Btl (per mL) IV (14:30)
[2023-06-08 14:38] LABS: Blood Urea Nitrogen 12 mg/dL (8-23); Glomerular Filtration Rate 111.5 mL/min (90-130)
== END 2023-06-08 12:18 | disposition home or self-care (01) ==
LOC: RAD 12:17
PROVIDERS: PCP Family Medicine; Visit Provider Family Medicine
DX: I72.8 Aneurysm of other specified arteries (principal); R22.1 Localized swelling, mass and lump, neck; J43.9 Emphysema, unspecified; Z95.1 Presence of aortocoronary bypass graft; D35.01 Benign neoplasm of right adrenal gland
CPT/HCPCS: 70491; 71260; 82565; 84520; Q9967

== ENCOUNTER → 2023-06-14 11:02 | Outpatient (BNVA) | payer MEDICARE, SELFPAY | PROVIDERS: PCP Family Medicine; Visit Provider Internal Medicine Cardiovascular Disease | DX: I42.9 Cardiomyopathy, unspecified (principal); R22.1 Localized swelling, mass and lump, neck; Z95.2 Presence of prosthetic heart valve; Z95.0 Presence of cardiac pacemaker; I10 Essential (primary) hypertension; F17.210 Nicotine dependence, cigarettes, uncomplicated | CPT/HCPCS: 99214 ==

== ENCOUNTER 2023-06-20 09:12 | Outpatient (CLI) | payer MEDICARE, SELFPAY ==
--- NOTE | 2023-06-20 09:23 | US_ITS ---
WS: [id number] ULTRASOUND GUIDED BIOPSY RIGHT SUPRACLAVICULAR NECK MASS. HISTORY: NECK MASS Procedure, risks, and complications are explained to the patient. Consent was obtained. Skin is clean sed with ChloraPrep and anesthetized with 1% buffered lidocaine. Comparison: 06/08/2023. There is a complex mass with both solid and cystic components in the RIGHT supraclavicular region stewart t was described on the recent CT of the neck. There is mild increased vascularity within the solid co mponent. This is not a simple cyst or a benign-appearing lymph node. Small dermatome is made. More numerous core biopsies are performed with 20-gauge needle. No complicat ions were encountered. Specimen is placed in formalin and sent to pathology. Patient is observed for 10 minutes post procedure with no hemorrhage or bleeding at the site of the biopsy. IMPRESSION: Uncomplicated core needle biopsy of the RIGHT neck mass. Specimen placed in formalin and sent to path ology.
== END 2023-06-20 09:13 | disposition home or self-care (01) ==
LOC: RAD 09:12
PROVIDERS: PCP Family Medicine; Visit Provider Family Medicine
DX: R22.1 Localized swelling, mass and lump, neck (principal)
CPT/HCPCS: 76942; 88307

== ENCOUNTER → 2023-07-27 09:22 | Outpatient (BNVA) | payer MEDICARE, SELFPAY | PROVIDERS: PCP Family Medicine; Visit Provider Nurse Practitioner Family | DX: I11.0 Hypertensive heart disease with heart failure (principal); I50.20 Unspecified systolic (congestive) heart failure; F17.210 Nicotine dependence, cigarettes, uncomplicated; Z86.73 Personal history of transient ischemic attack (TIA), and cerebral infarction without residual deficits | CPT/HCPCS: 36415; 80048; 83880; 99214 ==

== ENCOUNTER → 2023-12-15 10:58 | Outpatient (BNVA) | payer MEDICARE, SELFPAY | PROVIDERS: PCP Family Medicine; Visit Provider Internal Medicine Cardiovascular Disease | DX: R06.02 Shortness of breath (principal) | CPT/HCPCS: 36415; 80048; 83880 ==

== ENCOUNTER 2024-01-13 08:19 | Outpatient (CLI) | payer MEDICARE, SELFPAY ==
--- NOTE | 2024-01-13 08:30 | USCV_ITS ---
Julius Rao Age: 68 Gender: M : 1955 Exam Date: 01/13/2024 08:36 Ordering Phys: Alexia Byrd MD ([email or web address]) Technologist: [place] [facility] [place]: BP: 118 / 78 HR: 59 Rhythm: Sinus Technical Quality: Adequate MEASUREMENTS (Male / Female) Normal Values 2D ECHO LVOT Diameter 2.3 cm LV Ejection Fraction MOD 4C 44.3 % LV Ejection Fraction MOD 2C 49.0 % LV Ejection Fraction 2C AL 47.0 % LA Diameter 4.2 cm RA Systolic Volume 4C AL 37.9 ml RA Systolic Volume 4C MOD 37.1 ml LA Sys Volume AL 57.5 cm cubed LA Sys Volume Index AL 27.5 cm cubed/m squared Aorta at Sinotubular Diameter 3.1 cm IVC Diameter 2.0 cm M-MODE LA Ao Ratio MM 1.4 AV Cusp Separation MM 1.6 cm DOPPLER AV Peak Velocity 284.3 cm/s LVOT Peak Velocity 224.0 cm/s AV Area Cont Eq vti 3.3 cm squared AV Area Cont Eq pk 3.4 cm squared MV Peak Velocity 92.0 cm/s MV Area PHT 2.5 cm squared Mitral E to A Ratio 1.0 TV Peak Velocity 187.5 cm/s TR Peak Velocity 268.0 cm/s TR Peak Gradient 28.7 mmHg TV Peak E Velocity 56.0 cm/s Right Atrial Pressure 3.0 mmHg Pulmonary Artery Systolic Pressu 31.7 mmHg PV Peak Velocity 107.5 cm/s FINDINGS Left Ventricle Diffuse hypokinesia of the left 1 degree with an ejection fraction of 40 to 45%. Moderate concentric left-ventricular hypertrophy.Grade I/IV diastolic dysfunction (abnormal relaxation filling pattern), normal to mildly elevated filling pressures. Right Ventricle Normal right ventricular size and systolic function. Catheter/pacemaker wire in the right ventricular cavity. Right Atrium Mildly increased right atrial size. Catheter/pacemaker wire in the right atrial cavity. Left Atrium Mildly increased left atrial size. Mitral Valve Mild mitral valve regurgitation. Aortic Valve The bioprosthetic valve the aortic position appears to be well- seated. Slight thickening in the valve leaflet.trace aortic valve regurgitation. Peak velocity of the valve is 2.8 m/s with a peak gradient of 33 and a mean gradient of 16 mmHg. Aortic valve area 1.6 cm squared Tricuspid Valve No gross abnormalities noted Pulmonic Valve No gross abnormalities noted Pericardium No pericardial effusion. Aorta Normal aortic annulus size. IVC Normal inferior vena cava. CONCLUSIONS Diffuse hypokinesia of the left 1 degree with an ejection fraction of 40 to 45%. Moderate concentric left-ventricular hypertrophy.Grade I/IV diastolic dysfunction (abnormal relaxation filling pattern), normal to mildly elevated filling pressures. The bioprosthetic valve the aortic position appears to be well- seated. Slight thickening in the valve leaflet.trace aortic valve regurgitation. Peak velocity of the valve is 2.8 m/s with a peak gradient of 33 and a mean gradient of 16 mmHg. Aortic valve area 1.6 cm squared. Mild biatrial enlargement Pacemaker wire in the right atrial right ventricle Mild mitral valve regurgitation. There is no pericardial effusion. Compared to the study from 02/14/2023, the aortic valve appears to be replaced Dr Alexia Byrd MD [facility] (Electronically Signed) Final Date: 19 January 2024 09:29 S
== END 2024-01-13 08:20 | disposition home or self-care (01) ==
LOC: RAD 08:20
PROVIDERS: PCP Family Medicine; Visit Provider Internal Medicine Cardiovascular Disease
DX: I50.30 Unspecified diastolic (congestive) heart failure (principal); R06.09 Other forms of dyspnea; Z95.0 Presence of cardiac pacemaker; Z95.2 Presence of prosthetic heart valve
CPT/HCPCS: 93306

== ENCOUNTER → 2024-06-14 14:00 | Outpatient (BNVA) | payer MEDICARE, SELFPAY | PROVIDERS: PCP Family Medicine; Visit Provider Internal Medicine Cardiovascular Disease | DX: I42.9 Cardiomyopathy, unspecified (principal); I11.0 Hypertensive heart disease with heart failure; I50.23 Acute on chronic systolic (congestive) heart failure; Z95.2 Presence of prosthetic heart valve; Z95.0 Presence of cardiac pacemaker; Z79.01 Long term (current) use of anticoagulants; Z79.82 Long term (current) use of aspirin; F17.210 Nicotine dependence, cigarettes, uncomplicated | CPT/HCPCS: 99214 ==

== ENCOUNTER → 2024-06-20 10:07 | Outpatient (BNVA) | payer MEDICARE, SELFPAY | PROVIDERS: PCP Family Medicine; Visit Provider Internal Medicine Cardiovascular Disease | DX: Z45.018 Encounter for adjustment and management of other part of cardiac pacemaker (principal) | CPT/HCPCS: 93296 ==

== ENCOUNTER → 2024-12-13 14:47 | Outpatient (BNVA) | payer MEDICARE, SELFPAY | PROVIDERS: PCP Family Medicine; Visit Provider Internal Medicine Cardiovascular Disease | DX: Z95.2 Presence of prosthetic heart valve (principal); Z95.0 Presence of cardiac pacemaker; I11.0 Hypertensive heart disease with heart failure; I50.20 Unspecified systolic (congestive) heart failure; E11.9 Type 2 diabetes mellitus without complications; F17.210 Nicotine dependence, cigarettes, uncomplicated; Z79.84 Long term (current) use of oral hypoglycemic drugs | CPT/HCPCS: 99214 ==

== ENCOUNTER 2025-01-16 10:56 | Outpatient (CLI) | payer MEDICARE, SELFPAY ==
--- NOTE | 2025-01-16 11:00 | CT_ITS ---
WS: [id number] LDCT LUNG CANCER SCREENING HISTORY: HX OF TOBACCO USE TECHNIQUE: Axial imaging performed from the apices to 1 cm below the costophrenic angles. Coronal and sagittal reformats are submitted with axial MIP series. All CT scans at [facility] use at least one of these dose optimization techniques: automated exposure control; mA and/or kV adjustment per patient size (includes targeted exams where dose is matched to clinical indication); or iterative reconstruction. DLP: 72.41 mGy.cm DIvol: Mean CTDIvol: 1.30 (mGy) COMPARISON: 06/08/2023 Diagnostic quality: Satisfactory Lungs: Pulmonary hyperexpansion. Chronic emphysema. No mass or pneumonia. There are a few small granulomata which are calcified. No endobronchial lesions. Heart: Normal size heart with no pericardial effusion.. Prior CABG. LEFT subclavian pacer wires. Other findings: Mediastinal and hilar lymph nodes are stable. Advanced atherosclerosis aorta. No dilatation of the aorta or pulmonary artery. Stable 1.4 cm RIGHT adrenal adenoma. Previously described 2.5 cm cyst upper pole RIGHT kidney. CT/CT lung screening 12815 IMPRESSION: LUNG-RADS: 2-Benign Appearance or Behavior FOLLOW UP: 12 Month: Continue annual screening with LDCT OTHER FINDINGS (S MODIFIER): None.
== END 2025-01-16 10:57 | disposition home or self-care (01) ==
PROVIDERS: PCP Family Medicine; Visit Provider Family Medicine
DX: Z12.2 Encounter for screening for malignant neoplasm of respiratory organs (principal); Z87.891 Personal history of nicotine dependence; J43.8 Other emphysema; J98.4 Other disorders of lung; I70.0 Atherosclerosis of aorta; D35.01 Benign neoplasm of right adrenal gland
CPT/HCPCS: 71271

== ENCOUNTER → 2025-03-11 11:19 | Outpatient (BNVA) | payer MEDICARE, SELFPAY | PROVIDERS: PCP Family Medicine; Visit Provider Internal Medicine Cardiovascular Disease | DX: Z45.018 Encounter for adjustment and management of other part of cardiac pacemaker (principal) | CPT/HCPCS: 93296 ==